=== PATIENT | female | born 1950 | race Caucasian/White ===

== ENCOUNTER 2020-12-10 18:56 | Emergency (ER) | payer MEDICARE, MEDICAID, SELFPAY ==
[2020-12-10 18:57] VITALS: BP 151/60; PULSE 71; RESP 18; TEMP 36.7; O2SAT 92; BMI 47.5
--- NOTE | 2020-12-10 19:08 | HMH.EDGENADL ---
ED Disposition Clinical Impression: Tracheostomy complication Disposition: Xfer SNF Condition on Discharge: Good - Critical Care Critical Care Time: No Attestation: On , the high probability of a clinically significant, sudden or life threatening deterioration of the following system(s) required my full and direct attention, intervention and personal management. The time I documented below is in addition to time spent performing reported procedures but includes the following listed in this critical care notation. Medical Decision Making - Medical Records Medical records reviewed: Yes: I reviewed the patient's medical records. - [place] Inquiry Pt receiving controlled substance: No Vital Signs: 12/10/20 18:57 Temperature 98.1 F Temperature Source Oral Pulse Rate [Left Radial] 71 Respiratory Rate 18 Blood Pressure [Right Arm] 151/60 H Blood Pressure Mean [Right Arm] 90 Blood Pressure Source [Right Arm] Automatic Cuff Blood Pressure Position [Right Arm] Sitting 02 Sat by Pulse Oximetry 92 L Oxygen Delivery Method Room Air Medical Decision Narrative: 70-year-old female presents without any distress. She has normal oxygen saturation on room air and is requesting to keep the tracheostomy out as she is able to talk and not have any distress. Vital signs otherwise unremarkable Patient has been in no acute distress nontoxic-appearing in the emergency department. I discussed the case with ENT on-call Dr. Marc at . As she has no stridor is in no distress, no respiratory symptoms. And oxygen has been in the mid 90s since tracheostomy was pulled out. Recommendation to leave trach out at this point and follow-up with ENT. Plan to place Xeroform gauze and gauze over site to keep it clean. It will need to be cleaned daily and sterile water can be used. It is important to remove any debris from the site daily. These are guidelines for the shelter and then the follow-up appointment with ENT will be made for the next week. General Adult HPI - General Chief complaint: Recheck/Abnormal Lab/Rx Stated complaint: pulled trach out Time Seen by Provider: 12/10/20 19:00 Mode of Arrival: EMS Limitations: Physical Limitations Description of Symptoms (Recalled from ER Triage Doc. by RN): pt trach came out, states she is unsure how this happened. Shiley #6 is what was previously inserted by another hospital. - History of Present Illness HPI narrative: 70-year-old female presents with pulling trach out. Apparently she was admitted at [facility] for angioedema induced by lisinopril. She was supposed to follow-up with ENT after 2 weeks for evaluation however she has had the tracheostomy in place since that time. They did place it at that time because she had difficulty intubation from above. Since the tracheostomy was pulled out tonight she is awake and alert without any complaints talking with normal vital signs and normal saturations. She does deny shortness of air chest pain. [facility] History - Hepatitis A Screen Drug use history?: No High risk sexual behaviors?: No History of sexually transmitted infection?: No Currently employed?: No Childcare worker?: No Do you have indoor plumbing?: Yes Do you have electricity?: Yes Attestation statement:: This patient has been screened for Hepatitis A risk factors. ROS Obtained: Yes All systems reviewed & no additional complaints - Constitutional Constitutional: Denies chills, Denies fever(s) - Eyes Eyes: Denies blurry vision - ENT Ears, Nose, Mouth, and Throat: Denies dizziness - Cardiovascular Cardiovascular: Denies chest pain - Respiratory Respiratory: Denies shortness of breath - Gastrointestinal Gastrointestingal: Denies: abdominal pain - Genitourinary Female Genitourinary: Denies flank pain - Musculoskeletal Musculoskeletal: Denies joint pain, Denies joint stiffness - Integumentary/Breasts Skin/Breast: Denies rash - Neurologic Neuro
--- NOTE | 2020-12-10 19:12 | PC.NURSE ---
placed call to [facility] for ENT consult and to [facility] for Dr Smith
--- NOTE | 2020-12-10 19:54 | PC.NURSE ---
report called to BENJAMIN Henry by Camilla Steel RN
[2020-12-10 20:12] VITALS: BP 149/72; PULSE 70; RESP 20; TEMP 36.7; O2SAT 94
== END 2020-12-10 20:29 ==
PROVIDERS: Emergency Provider Emergency Medicine; PCP Family Medicine
DX: J95.00 Unspecified tracheostomy complication (principal)
CPT/HCPCS: 99282

== ENCOUNTER 2022-03-23 06:03 | Emergency (ER) | payer MEDICARE, MEDICAID, SELFPAY ==
[2022-03-23] VITALS (10 sets, daily range): BP systolic 107–162; BP diastolic 50–79; PULSE 62–73; RESP 18–20; TEMP 36.6; O2SAT 95–100; BMI 45.7
--- NOTE | 2022-03-23 06:11 | CT_ITS ---
FINAL REPORT CLINICAL HISTORY: fall FINDINGS: Axial images of the head were obtained without contrast. Coronal reformatted images were also obtained. This study was performed with techniques to keep radiation doses as low as reasonably achievable (ALARA). Individualized dose reduction techniques using automated exposure control or adjustment of mA and/or kV according to the patient's size were employed. There is generalized age-appropriate atrophy. Periventricular low-attenuation areas are seen consistent with mild chronic ischemic changes. There is no evidence of intracranial hemorrhage or mass. There is no evidence of acute infarct. There is no evidence of shift of the midline structures. No skull abnormality is seen on the bone window images. IMPRESSION: Atrophy and mild periventricular chronic ischemic changes. No acute intracranial abnormality identified. Reviewed, Interpreted and Dictated by Yong Mendoza III, MD Transcribed by Juwan Kay Authenticated and [facility]
--- NOTE | 2022-03-23 06:11 | CT_ITS ---
FINAL REPORT CLINICAL HISTORY: fall FINDINGS: Axial CT images of the cervical spine were obtained without contrast. Sagittal and coronal reformatted images were also obtained. This study was performed with techniques to keep radiation doses as low as reasonably achievable (ALARA). Individualized dose reduction techniques using automated exposure control or adjustment of mA and/or kV according to the patient''s size were employed. There is no evidence of fracture or dislocation. There is mild anterolisthesis of C2 on C3 and C3 on C4. There are moderate and severe degenerative changes. There is multilevel disc space narrowing and osteophyte formation. There is no evidence of canal stenosis. No paraspinous soft tissue abnormality is seen. Limited images of the upper thorax are unremarkable. IMPRESSION: No fracture or acute bony abnormality identified. Reviewed, Interpreted and Dictated by Yong Mendoza III, MD Transcribed by Juwan Kay Authenticated and [facility]
--- NOTE | 2022-03-23 06:11 | XR_ITS ---
FINAL REPORT CLINICAL HISTORY: fall FINDINGS: SINGLE VIEW CHEST The heart size is enlarged. The mediastinum is within normal limits. There is mild pulmonary vascular congestion. There are bibasilar opacities favoring atelectasis. There is no evidence of pneumothorax. The bony thorax is intact. IMPRESSION: Bibasilar opacities favoring atelectasis. Reviewed, Interpreted and Dictated by Yong Mendoza III, MD Transcribed by Juwan Kay Authenticated and [facility]
--- NOTE | 2022-03-23 06:11 | XR_ITS ---
FINAL REPORT CLINICAL HISTORY: . fall FINDINGS: AP PELVIS: A single view of the pelvis was obtained. There is no acute fracture or dislocation. Visualized joint spaces are normally aligned. Degenerative changes are seen in the lumbar spine. Soft tissues are unremarkable. IMPRESSION: No acute process. Reviewed, Interpreted and Dictated by Yong Mendoza III, MD Transcribed by Juwan Kay Authenticated and [facility]
--- NOTE | 2022-03-23 06:11 | HMH.EDFALL ---
Discharge Plan Disposition Chief Complaint: Fall Referrals Follow up/Referrals: Chidi Hobson [Primary Care Provider] - See instructions Chuy Fernandes MD [Physician] - See instructions Clinical Impressions Clinical Impression: Concussion without loss of consciousness, Closed fracture nasal bone, Fall Instructions Patient Instructions: DI for Nose Fracture Discharge ED Provider: Chidi Maier Fall HPI General Chief Complaint: Fall Stated Complaint: fall Time Seen by Provider: 03/23/22 06:11 Mode of Arrival: EMS Source of Information: Patient, EMS and Medical Record Limitations: No Limitations Description of Symptoms (Recalled from ER Triage Doc. by RN): pt states was walking to bathroom and tripped over feet and fell. pt c/o nose and forehead pain History of Present Illness HPI Narrative: fell this am with head and facial injury complaint: fall Onset (ago): hour(s) Fall from: walking Fall witnessed: no Place fall occurred: home Loss of consciousness: none Prolonged down time: no Symptoms prior to fall: none Context: tripped/slipped Location of injury: head, face and neck Associated symptoms (after fall): headache and neck pain Related Data Allergies Allergy/AdvReac Type Severity Reaction Status Date / Time No Known Allergies Allergy Verified 12/10/20 20:11 PFSH PFSH Social History Smoking Status: Never smoker alcohol intake: never current occupational status: retired Travel in the last 8 weeks: None ROS Obtained: Yes All systems reviewed & no additional complaints except as documented Constitutional Constitutional: Denies fever(s) Eyes Eyes: Denies loss of vision Neurologic Neurologic: Denies loss of vision Physical Exam General General appearance: alert and obese Head Head exam: normocephalic Eye Eye exam: Present PERRL and EOMI ENT ENT exam: Present mucous membranes moist Neck Neck exam: Present trachea midline Respiratory Respiratory exam: Present normal lung sounds bilaterally Cardiovascular Cardiovascular exam: Present regular rate Abdominal Exam Abdominal exam: Present soft Extremities Exam Extremities exam: Absent joint swelling Neurological Exam Neurological exam: Present alert, oriented X3, CN II-XII intact and other (gcs=15); Absent motor sensory deficit Skin Skin exam: Absent rash Medical Decision Making Medical Records Medical records reviewed: Yes I reviewed the patient's medical records. [place] Inquiry Pt receiving controlled substance: No Vital Signs: 03/23/22 06:03 03/23/22 07:01 Temperature 97.8 F Temperature Source Oral Pulse Rate 71 Pulse Rate [Right] 69 Respiratory Rate 20 Blood Pressure 107/50 L Blood Pressure [Right Arm] 141/79 H Blood Pressure Mean 73 Blood Pressure Mean [Right Arm] 99 02 Sat by Pulse Oximetry 95 100 Oxygen Delivery Method Nasal Cannula Nasal Cannula Oxygen Flow Rate (LPM) 3 Lab Data Lab results reviewed: Yes I reviewed the patient's lab results. Orders (Tests/Meds): ORDERS Category Date Time Status CT cervical spine wo con Stat Cat Scan 03/23/22 06:[address] facial bones wo con Stat Cat Scan 03/23/22 06:[address] head/brain wo con Stat Cat Scan 03/23/22 06:11 Completed XR chest portable Stat Exams 03/23/22 06:11 Completed XR pelvis 1-2V Stat Exams 03/23/22 06:11 Completed Radiology Data #1: Image(s): Chest and Pelvis Image Reviewed: Yes I have reviewed radiologist's interpretation Preliminary Findings: No Fracture Seen CT Data CT Scan: Head, C-Spine and Other (facial) Time Received: 08:[address] Reviewed: Yes I have viewed the radiologist's interpretation Preliminary Findings: Abnormal Findings Narrative: nasal bone fx US Data ED US Reviewed: Yes I have viewed radiologist's interpretation Medical Decision Narrative: trip injury and has nasal fx but has stable exam Critical Care Time Critical Care Time Critical Care Time: No Attest
--- NOTE | 2022-03-23 06:37 | CT_ITS ---
FINAL REPORT TECHNIQUE: Axial CT images were obtained through the facial bones/sinuses. Coronal reformats were obtained. This study was performed with techniques to keep radiation doses as low as reasonably achievable (ALARA). Individualized dose reduction techniques using automated exposure control or adjustment of mA and/or kV according to the patient's size were employed. CLINICAL HISTORY: fall FINDINGS: There are bilateral nasal bone fractures of uncertain age. The orbits are intact. The globes are unremarkable. The visualized sinuses are clear. There is nasal soft tissue swelling. IMPRESSION: Bilateral nasal bone fractures of uncertain age. Reviewed, Interpreted and Dictated by Yong Mendoza III, MD Transcribed by Juwan Kay Authenticated and [facility]
--- NOTE | 2022-03-23 07:55 | PC.NURSE ---
checked on pt at this time, given warm blanket, states no other needs. Will continue to monitor
--- NOTE | 2022-03-23 08:07 | PC.NURSE ---
contacted rad to check on status of cts/xrays being read, staff states will check on them and call us back.
--- NOTE | 2022-03-23 08:34 | PC.NURSE ---
report called to Marah Wheat at [facility]. Staff at [facility] states pt has been transported previously by [employer]. Contacted care management, spoke with Johnnie Caro. States she will check into it and call us back.
--- NOTE | 2022-03-23 08:47 | PC.NURSE ---
jose from care management called states [facility] states they are going to make phone calls for transport for pt and will call us back.
--- NOTE | 2022-03-23 08:50 | SW/DCPLANNER ---
Addendum entered by Marisol Reed 03/23/22 11:01: Diana has confirmed that [facility] will be here at 12:30 to transport this patient. I have updated Scot in ED. Original Note: I have contacted Diana w/ [facility] regarding transportation for this patient. Diana stated that she will make a few phone calls and contact me back. Patient is medically stable for discharge from ED.
--- NOTE | 2022-03-23 10:36 | PC.NURSE ---
Marisol from care management states no new news on transport for pt. pt sleeping will continue to monitor
--- NOTE | 2022-03-23 10:44 | PC.NURSE ---
pt was sleeping when i entered room. Pt woke up when I came in, offered pt food, ordered pt food tray, updated pt on working on transport back home.
--- NOTE | 2022-03-23 12:01 | PC.NURSE ---
Marisol Reed called down and advised that the patients ride would be here at approximately 1230
--- NOTE | 2022-03-23 12:32 | PC.NURSE ---
notified [facility] staff pt is on the way back to their facility at this time via [employer] cab
== END 2022-03-23 12:40 | disposition home or self-care (01) ==
PROVIDERS: Emergency Provider Emergency Medicine; PCP Family Medicine
DX: S06.0X0A Concussion without loss of consciousness, initial encounter (principal); S02.2XXA Fracture of nasal bones, initial encounter for closed fracture; W19.XXXA Unspecified fall, initial encounter
CPT/HCPCS: 70450; 70486; 71045; 72125; 72170; 99284

== ENCOUNTER → 2022-04-19 09:39 | Outpatient (POV) | payer MEDICARE, MEDICAID, SELFPAY | PROVIDERS: Visit Provider Dermatology | DX: Z00.00 Encounter for general adult medical examination without abnormal findings (principal) ==

== ENCOUNTER 2023-08-08 11:12 | Outpatient (POV) | payer MEDICARE, MEDICAID, SELFPAY | END 2023-08-08 23:59 | disposition home or self-care (01) | LOC: SC 11:12 | PROVIDERS: PCP Family Medicine; Visit Provider Dermatology | DX: Z00.00 Encounter for general adult medical examination without abnormal findings (principal) ==

== ENCOUNTER 2025-02-23 09:12 | Inpatient (IN) | payer MEDICARE, MEDICAID, SELFPAY ==
--- OUTSIDE RECORDS SUMMARY | 2025-02-16 20:00 | XMS_ITS | Continuity of Care Document ---
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 Role Phone Chloe BRADLEY, Tomás Unavailable Unavailable Allergies, Adverse Reactions, Alerts Substance Reaction Status Criticality influenza virus vacc trivalent, split Act jodie No Information CEPHALEXIN MONOHYDRATE Active No In formation lisinopril Active No Information METOCLOPRAMIDE HCL Active No Inform ation Cephalosporins Active No Informatio n Sulfa (Sulfonamide Antibiotics) Active No Information Penicillins Active No Information aspirin Active No Information Medications Medication Instructions Dosage Effective Dates (start - stop) Status Comments Myrbetriq 50 mg tablet,extended release - Active alprazolam 0.5 mg tablet - A ctive gabapentin 100 mg capsule - Active melatonin 3 mg tablet - Acti ve ropinirole 1 mg tablet - Act jodie loratadine 10 mg tablet - Ac tive acetaminophen 500 mg tablet - Active senna 8.6 mg tablet - Active oseltamivir 75 mg capsule - Active Ear Wax Removal Drops 6.5 % - Active clotrimazole-betamethasone 1 %-0.05 % topical cream - Active nystatin 100,000 unit/gram topical ointment - Active Calcium Antacid 200 mg (as calcium carbonate 500 mg) chewable tablet - Active neomycin 3.5 mg-polymyxin 10,000 unit-hydrocort 10 mg/mL eye drop,susp - Active diphenhydramine 25 mg tablet - Active triamcinolone acetonide 0.1 % topical cream - Active triamcinolone acetonide 0.1 % topical ointment - Active ondansetron HCl 4 mg tablet - Active hydroxyzine HCl 10 mg tablet - Active hydroxyzine HCl 25 mg tablet - Active cephalexin 250 mg capsule - Active cephalexin 500 mg capsule - Active potassium chloride ER 10 mEq capsule,extended release - Active ropinirole 0.5 mg tablet - A ctive tamsulosin 0.4 mg capsule - Active amlodipine 5 mg tablet - Act jodie hydralazine 50 mg tablet - A ctive levothyroxine 125 mcg tablet - Active sertraline 50 mg tablet - Ac tive tramadol 50 mg tablet - Acti ve buspirone 10 mg tablet - Act jodie Eliquis 5 mg tablet - Active omeprazole 20 mg capsule,delayed release - Active lorazepam 0.5 mg tablet - Ac tive furosemide 40 mg tablet - Ac tive doxycycline hyclate 100 mg capsule - Active doxycycline hyclate 100 mg tablet - Active lorazepam 1 mg tablet - Acti ve metoprolol tartrate 75 mg tablet - Active ammonium lactate 12 % lotion - Active ketoconazole 2 % topical cream - Active mupirocin 2 % topical ointment - Active potassium chloride ER 20 mEq tablet,extended release(part/cryst) - Active prednisone 20 mg tablet - Ac tive omeprazole 40 mg capsule,delayed release - Active spironolactone 25 mg tablet - Active levofloxacin 500 mg tablet - Active furosemide 20 mg tablet - Ac tive ipratropium 0.5 mg-albuterol 3 mg (2.5 mg base)/3 mL nebulization soln - Active levothyroxine 100 mcg tablet - Active nystatin 100,000 unit/gram topical powder - Active acetylcysteine 200 mg/mL (20 %) solution - Active cetirizine 10 mg tablet TAKE 1 TABLET BY MOUTH ONCE A DAY. - Active DOK 100 mg capsule TAKE (1) CAPSULE BY MOUTH TWICE DAILY. - Active folic acid 1 mg tablet TAKE 1 TABLET BY MOUTH ONCE A DAY. - Active Jardiance 10 mg tablet TAKE 1 TABLET BY MOUTH EACH MORNING - Active metformin 500 mg tablet TAKE (1) TABLET BY MOUTH TWICE A DAY WITH MORNING AND EVENING MEALS - Active oxybutynin chloride ER 15 mg tablet,extended release 24 hr - Active simvastatin 20 mg tablet - A ctive trazodone 100 mg tablet - Ac tive Vascepa 1 gram capsule TAKE (2) CAPSULES BY MOUTH TWICE DAILY WITH FOOD SWALLOWING WHOLE. DO NOT CHEW, OPEN, DISSOLVE AND/OR CRUSH. - Active fluconazole 150 mg tablet TAKE 1 TABLET BY MOUTH ONCE A DAY. - Active nystatin 100,000 unit/gram topical cream - Active meclizine 25 mg tablet - Act jodie carvedilol 3.125 mg tablet TAKE 1 TABLET TWICE DAILY TAKE WITH FOOD - Active gabapentin 300 mg capsule TAKE (1) CAPSU LE BY MOUTH THREE TIMES DAILY. - Active hydrochlorothiazide 12.5 mg tablet TAKE (1) TABLET BY MOUTH TWICE A DAY. - Active lisinopril 10 mg tablet - Ac tive Nystop 100,000 unit/gram topical powder - Active Procedures Procedure Date Dystrophic nail(s), trim any number Debride mycotic nails 5 or less 025 Low extemity neur exam docum REMOVE IMPACTED EAR WAX Debride mycotic nails 6 or more 025 DEBRIDE NAIL 6 OR MORE Periodic Oral Evaluation UNLISTED ORL SERVICE/PX Vision svcs frames purchases FITTING OF SPECTACLES DETERMINE REFRACTIVE STATE Lens spher bifoc plano 4.00d FUNDUS PHOTOGRAPHY COMPRE OPH EXAM EST PT 1/> DEBRIDE NAIL 6 OR MORE SBSQ NF CARE LOW MDM 20 PARING/CUTG B9 HYPRKER LES 1 DEBRIDE NAIL 6 OR MORE Periodic Oral Evaluation PARING/CUTG B9 HYPRKER LES 1 DEBRIDE NAIL 6 OR MORE ECHO EXAM OF EYE THICKNESS SBSQ NF CARE MODERATE MDM 30 PARNG/CUTG B9 HYPRKR LES 2-4 DEBRIDE NAIL 6 OR MORE Periodic Oral Evaluation Vision svcs frames purchases FITTING OF SPECTACLES DETERMINATION OF REFRACTIVE STATE Lens spher bifoc plano 4.00d FUNDUS PHOTOGRAPHY SBSQ NF CARE MODERATE MDM 30 DEBRIDE NAIL 6 OR MORE DEBRIDE NAIL 6 OR MORE FUNDUS PHOTOGRAPHY EYE EXAM & TREATMENT TRIM SKIN LESION DEBRIDE NAIL 6 OR MORE Compsve Oral Eval- New/Est Pat Complete Series Of Radiographic Images M TRIM SKIN LESION DEBRIDE NAIL 6 OR MORE TRIM SKIN LESION DEBRIDE NAIL 6 OR MORE DEBRIDE NAIL 6 OR MORE TRIM SKIN LESION FUNDUS PHOTOGRAPHY EYE EXAM NEW PATIENT DEBRIDE NAIL 6 OR MORE NURSING FAC CARE SUBSEQ Compsve Oral Eval- New/Est Pat Advance Directives Directive Yes / No Effective Date File Name No Information Encounters Encounter Description Practice Location Reason(s) For Visit Diagnoses Date Provider Providers Copied on Encounter [address] [place] [address], [address] [place] [address], [place], [place], [id number], tel:[phone] [facility] 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 [address] [place] [address], [address] [place] [address], [place], [place], [id number], tel:[phone] [facility] ear care exam (chief complaint) Impacted cerumen, left ear 5 Alison-Hard mc Edita. [address] [facility], [address], [place], [address], . Referring Provider: Chidi Hobson. [address] [place] [address], [address] [place] [address], [place], [place], [id number], tel:[phone] [facility] Nail dystrophyOnych ogryphosisType 2 diabetes mellitus with diabetic peripheral angiopathy without gangreneLong term (current) use of oral hypoglycemic drugs 5 [place], [place]. [address] [place] [address], [place], [place], [id number], tel:[phone] [place] [address] No Information 5 [place], [place]. [address] [place] [address], [address] [place] [address], [place], [place], [id number], tel:[phone] [facility] Type 2 diabetes mellitus with diabetic peripheral angiopathy without gangreneOther specified peripheral vascular diseasesOnycho gryphosisNail dystrophy 5 [place]. [address] [place] [address], [address] [place] [address], [place], [place], [id number], [place] tel:[phone] [facility] Encounter for dental examination and cleaning without abnormal findings 5 Collin [place]. . Referring Provider: Chidi Hobson. [address] [place] [address], [address] [place] [address], [place], [place], [id number], [place] tel:[phone] [facility] Impacted cerumen, bilateral 5 Lili [place], [place]. Referring Provider: Chidi Hobson. [address] [place] [address], [address] [place] [address], [place], [place], [id number], [place] tel:[phone] [facility] Presbyopia 4 [place], [place]. [address] [place] [address], [address] [place] [address], [place], [place], [id number], [place] tel:[phone] [facility] Diabetic eye exam (chief complaint) Cataract (chief complaint) Glaucoma, suspect (chief complaint) Open angle with borderline findings, low risk, bilateralAge-r elated nuclear cataract, bilateralBand keratopathy, left eyePresbyopiaT ype 2 diabetes mellitus without complications 4 [place]. Referring Provider: Chidi Hobson. [address] [place] [address], [address] [place] [address], [place], [place], [id number], tel:[phone] [facility] No Information 4 Michael Houistina. , [place]. SBSQ NF CARE LOW MDM 20 [facility], [address] [place] [address], [place], [place], [id number], [place] tel:[phone] [facility] Nail dystrophyOnych ogryphosisType 2 diabetes mellitus with diabetic neuropathy, unspecifiedCon tusion of right foot, initial encounter 4 Chloe Beeemiah. , [place]. [facility], [address] [place], [place] [address], [place], [place], [id number], [place] tel:[phone] [facility] Corns and callositiesTin ea unguiumOther specified peripheral vascular diseases 4 Trey Mckenna. [address] [facility], [address], [place], [address], [place]. [facility], [address] [place] [address], [place], [place], [id number], [place] tel:[phone] [facility] Encounter for dental examination and cleaning without abnormal findings 4 Rupert Recinos. [address], [address], [place], [place], [id number], [place]. tel:[phone] Referring Provider: Chidi Hobson. [address] [place] [address], [address] [place], [place] [address], [place], [place], [id number], tel:[phone] [facility] Other specified peripheral vascular diseasesTinea unguiumCorns and callosities 4 Trey Stuart [address], [address], [place], [address], [place]. Referring Provider: Chidi Hobson. SBSQ NF CARE MODERATE MDM 30 [facility], [address] [place], [place] [address], [place], [place], [id number], [place] tel:[phone] [facility] Glaucoma, suspect (chief complaint) Cataract (chief complaint) Eyeglasses , problem (chief complaint) Band keratopathy, left eyeAge-related nuclear cataract, bilateralOpen angle with borderline findings, low risk, bilateral May- 4 Michael Hendrickson. , [place]. Referring Provider: Chidi Hobson. [address] [place] [address], [address] [place] [address], [place], [place], [id number], [place] tel:[phone] [facility] Corns and callositiesOth er specified peripheral vascular diseasesTinea unguium 4 Trey Mckenna. [address] [facility], [address], [place], [address], [place]. Referring Provider: Chidi Hobson. [address] [place] [address], [address] [place] [address], [place], [place], [id number], [place] tel:[phone] [facility] Encounter for dental examination and cleaning without abnormal findings 4 Rupert Recinos. [address] [facility], [address], [place], [place], [id number], [place]. tel:[phone] Referring Provider: Chidi Hobson. [address] [place] [address], [address] [place] [address], [place], [place], [id number], [place] tel:[phone] [place] [address] Presbyopia Mar- 3 Kym Johnson. [address] [facility], [address], [place], [address], [place]. SBSQ NF CARE MODERATE MDM [address] [place] [address], [address] [place] [address], [place], [place], [id number], [place] tel:[phone] [facility] Glaucoma, suspect (chief complaint) Open angle with borderline findings, low risk, bilateralAge-r elated nuclear cataract, bilateralBand keratopathy, left eye Oct-2 3 Kym Johnson. [address] [facility], [address], [place], [address], [place]. Referring Provider: Chidi Hobson. [address] [place] [address], [address] [place] [address], [place], [place], [id number], [place] tel:[phone] [facility] Tinea unguiumOther specified peripheral vascular diseases Oct-0 3 Trey Stuart [address] [facility], [address], [place], [address], [place]. [facility], [address] [facility], [place], [place], [id number], [place] tel:[phone] [facility] Tinea unguiumOther specified peripheral vascular diseases 3 Trey Mckenna. [address] [facility], [address], [place], [address], [place]. Referring Provider: Chidi Hobson. [facility], [address] [place], [place] [address], [place], [place], [id number], [place] tel:[phone] [facility] Diabetic eye exam (chief complaint) Open angle with borderline findings, low risk, bilateralAge-r elated nuclear cataract, bilateral 3 Kym Johnson. [address] [facility], [address], [place], [address], [place]. Referring Provider: Chidi Hobson. [address] [place] [address], [address] [place], [place] [address], [place], [id number], [place] tel:[phone] [facility] Tinea unguiumCorns and callositiesOth er specified peripheral vascular diseases 3 Trey Mckenna. [address] [facility], [address], [place], [address], [place]. Referring Provider: Chidi Hobson. [address] [place] [address], [address] [place], [place] [address], [place], [id number], [place] tel:[phone] [facility] No Information 3 Trey Mckenna. [address] [facility], [address], [place], [address], [place]. [facility], [address] [place], [place] [address], [place], [place], [id number], [place] tel:[phone] [facility] Encounter for dental examination and cleaning without abnormal findings 3 Obi Yap [place]. tel:[phone] Referring Provider: Chidi Hobson. [facility], [address] [place], [place] [address], [place], [place], [id number], [place] tel:[phone] [facility] Tinea unguiumCorns and callositiesOth er specified peripheral vascular diseases 2 Trey Stuart [address] [facility], [address], [place], [address], [place]. Referring Provider: Chidi Hobson. [address] [place] [address], [address] [place], [place] [address], [place], [id number], [place] tel:[phone] [facility] Tinea unguiumCorns and callositiesOth er specified peripheral vascular diseases 2 Trey Stuart [address], [address], [place], [address], [place]. Referring Provider: Chidi Hobson. [address] [place] [address], [address] [place] [address], [place], [place], [id number], tel:[phone] [facility] Tinea unguiumOther specified peripheral vascular diseasesCorns and callosities 2 [place]. Referring Provider: Chidi Hobson. [address] [place] [address], [address] [place], [place] [address], [place], [id number], [place] tel:[phone] [facility] Diabetic eye exam (chief complaint) Open angle with borderline findings, low risk, bilateralAge-r elated nuclear cataract, bilateral 2 Kym [place]. [address] [facility], [address], [place], [address], [place]. Referring Provider: Chidi Hobson. NURSING FAC CARE SUBSEQ [address] [place] [address], [address] [place], [place] [address], [place], [place], [id number], [place] tel:[phone] [facility] Tinea unguiumOther specified peripheral vascular diseasesContus ion of right great toe w/o damage to nail, init encntr 2 Trey Stuart [address] [facility], [address], [place], [address], [place]. Referring Provider: Chidi Roblero [address] [place] [address], [address] [place] [address], [place], [place], [id number], [place] tel:[phone] [facility] Encounter for dental exam and cleaning w/o abnormal findings 2 Melvin Bucio. [address] [facility], [address], [place], [place], [address], [place]. tel:[phone] Referring Provider: Chidi Hobson. [address] [place] [address], [address], [place], [place], [id number], [place] tel:[phone] [facility] No Information [address] [place]. [address], [address], [place], [address], [place]. Family History Family Member Type Diagnosis Age At Onset No Information Payers Payer name Insurance type Covered green party ID Authorabdifataha tisaqib(s) Medicare [facility] [id number] Medicaid [facility] [id number] Social History Type Description Quantity Date Captured Comments Alcohol Use Details Unknown Caffeine Use Details Unknown Tobacco Use Status No Information Smoking Status No Information Sex Female Chief Complaint And Reason For Visit No Information Reason For Referral Reason For Referral No Information Plan Of Treatment Date Type Action Status Appointment Angela Basilio BOOKED Patient Education Earwax Blockage: Care I nstructions completed Patient Education Learning About Dental Care and Your Health Problem completed Patient Education Dental X-Ray: About Thi s Test completed Patient Education Learning About Dental Care and Your Health Problem completed Patient Education Learning About Dental Care and Your Health Problem completed History Of Present Illness Encounter Date Complaint History Of Prese nt Illness Cataract Glaucoma, suspect Diabetic eye exam The 73 year ol d patient presents for evaluation of Diabetic eye exam in the right eye and left eye. It occurs always. The onset was gradual. The symptom is constant. Cataract Glaucoma, suspect The 73 year ol d patient presents for evaluation of Glaucoma, suspect in the right eye and left eye. It occurs always. The onset was gradual. The symptom is constant. Eyeglasses, problem Patient repo rts that eyeglasses are loose. Adjusted nosepads and temples and patient was pleased with the results. Glaucoma, suspect The 72 year ol d patient presents for evaluation of Glaucoma, suspect in the right eye and left eye. It occurs all the time. The onset was gradual. It affects OS > OD. The symptom is constant. Diabetic eye exam The 72 year ol d female presents for evaluation of Diabetic eye exam in the right eye and left eye. It occurs all the time. The onset was gradual. It affects VA not affected. Diabetic eye exam The 71 year ol d female presents for evaluation of Diabetic eye exam in the right eye and left eye. It occurs all the time. The onset was progressive. It affects both near and far vision. The symptom is constant. The condition is moderate. Functional Status Date Functional Assessmen t No Information Instructions Date Instruction Additional Infor mation A diabetic exam perf ormed. discussed importance of good foot care and shoes. Educational material was left with the facility. Related to Type 2 diabetes mellitus with diabetic peripheral angiopathy without gangrene All documented dystr ophic nails were trimmed in length as needed to prevent pain and other symptoms. Patient tolerated procedure well. Related to Nail dystrophy All of the documente d thickened nails (which includes those nails 2 mm or more in thickness, and possible mycotic component to the nails) were reduced in both length and thickness using both a nail nipper and an electric rotary hand grinder in an atraumatic fashion as needed ; this was performed in an attempt to prevent pain and reduce risk of infection. Patient tolerated procedure well. Alcohol applied to the digits afterwards. PT tolerated procedure well. Related to Onychogryphosis Follow up in 6-9 mon ths or sooner if needed. Related to Impacted cerumen, left ear This is a chronic st able problem, Will reassess and follow up in 2-3 months Related to FPC (current) use of oral hypoglycemic drugs All documented dystr ophic nails were reduced in length as needed to prevent pain and other symptoms. Patient tolerated procedure well. Related to Nail dystrophy All of the documente d thickened nails (which includes those nails 2 mm or more in thickness, and possible mycotic component to the nails) were debrided in both length and thickness using both a nail nipper and an electric rotary hand grinder in an atraumatic fashion as needed ; this was performed in an attempt to prevent pain and reduce risk of infection. Alcohol applied to the digits afterwards. PT tolerated procedure well. 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 Reinforced the importance of proper adherence to using the lizandro hose, and compression stockings. Will continue to monitor. Related to Other specified peripheral vascular diseases All of the documente d thickened nails (which includes those nails 2 mm or more in thickness, and possible mycotic component to the nails) were debrided in both length and thickness using both a nail nipper and an electric rotary hand grinder in an atraumatic fashion; this was performed in an attempt to prevent pain and reduce risk of infection. Alcohol applied to the digits afterwards. Related to Onychogryphosis All documented dystr ophic nails were reduced in length as needed to prevent pain and other symptoms. Related to Nail dystrophy Otoscopy and impedan ce testing indicated the ear canals are impacted with cerumen Related to Impacted cerumen, bilateral Return in 6-9 months for IOP brigida ck. Related to Type 2 diabetes mellitus without complications Impression/Plan - No active diabetic retinopathy present in right eye. We will monitor at regular intervals. Photodocument. No view OS due to anterior pathology. Related to Type 2 diabetes mellitus without complications Follow up - Return i n 6-9 months for IOP check. Related to Type 2 diabetes mellitus without complications Impression/Plan - Gl asses order will be processed at request of resident. Related to Presbyopia Impression/Plan - Lo ng-standing and stable. Monitor. Related to Band keratopathy, left eye Impression/Plan - Ca taracts are moderate and are affecting visual acuity; however, no treatment recommended at this time. We will monitor for progression. Related to Age-related nuclear cataract, bilateral Impression/Plan - Alphonso rderline Glaucoma findings; No treatment indicated at this time; Further testing needed to assess risk of developing glaucoma. Related to Open angle with borderline findings, low risk, bilateral This is a chronic st able problem, Will reassess and follow up in 2-3 months Related to Type 2 diabetes mellitus with diabetic neuropathy, unspecified Scabbed healing well no change to current treatment plan, discussed with nursing. Related to Contusion of right foot, initial encounter All documented dystr ophic nails were reduced in length as needed to prevent pain and other symptoms. Related to Nail dystrophy All documented thick ened nails were debrided using a rotary tool and nail nipper. Related to Onychogryphosis All of the calluses were debrided/pared to prevent further tissue breakdown and pain. Related to Corns and callosities Toenails 1-5 b/l wer e debrided in length and thickness without incident. Follow up in 2-3 months. Related to Tinea unguium All of the calluses were debrided/pared to prevent further tissue breakdown and pain. Related to Corns and callosities Toenails 1-5 b/l wer e debrided in length and thickness without incident. Follow up in 2-3 months. Related to Tinea unguium Return in 6-9 months for dilated fundus exam. Related to Open angle with borderline findings, low risk, bilateral Impression/Plan - Un able to get IOP today; order pachymetry. Check IOP at next visit. Related to Open angle with borderline findings, low risk, bilateral Follow up - Return i n 6-9 months for dilated fundus exam. Related to Open angle with borderline findings, low risk, bilateral Impression/Plan - Ca taracts are moderate and are affecting visual acuity; however, no treatment recommended at this time. We will monitor for progression. Related to Age-related nuclear cataract, bilateral Impression/Plan - Lo ng-standing and stable. Monitor. Related to Band keratopathy, left eye All of the calluses were debrided/pared to prevent further tissue breakdown and pain. Related to Corns and callosities Toenails 1-5 b/l wer e debrided in length and thickness without incident. Follow up in 2-3 months. Related to Tinea unguium Impression/Plan - Alphonso rderline Glaucoma findings; No treatment indicated at this time; Further testing needed to assess risk of developing glaucoma. Related to Open angle with borderline findings, low risk, bilateral Impression/Plan - Ca taracts are moderate and are affecting visual acuity; however, no treatment recommended at this time. We will monitor for progression. Related to Age-related nuclear cataract, bilateral Impression/Plan - Lo ngstanding, loss of vision. Told her specs won't help OS but may help OD some. Related to Band keratopathy, left eye Toenails 1-5 b/l wer e debrided in length and thickness without incident. Follow up in 2-3 months. Related to Tinea unguium Toenails 1-5 b/l wer e debrided in length and thickness without incident. Follow up in 2-3 months. Related to Tinea unguium We will schedule a f ollow up appointment in 6-9 months for a dilated fundus exam. Related to Open angle with borderline findings, low risk, bilateral Impression/Plan - Ca taracts are visually significant; Please schedule for cataract evaluation with [facility] [phone]. Related to Age-related nuclear cataract, bilateral Impression/Plan - Alphonso rderline Glaucoma findings; No treatment indicated at this time; Further testing needed to assess risk of developing glaucoma. Related to Open angle with borderline findings, low risk, bilateral Follow up - We will schedule a follow up appointment in 6-9 months for a dilated fundus exam. Related to Open angle with borderline findings, low risk, bilateral All of the calluses were debrided/pared to prevent further tissue breakdown and pain. Related to Corns and callosities Toenails 1-5 b/l wer e debrided in length and thickness without incident. Follow up in 2-3 months. Related to Tinea unguium Toenails 1-5 b/l wer e debrided in length and thickness without incident. Follow up in 2-3 months. Related to Tinea unguium All of the calluses were debrided/pared to prevent further tissue breakdown and pain. Related to Corns and callosities Toenails 1-5 b/l wer e debrided in length and thickness without incident. Follow up in 2-3 months. Related to Tinea unguium All of the calluses were debrided/pared to prevent further tissue breakdown and pain. Related to Other specified peripheral vascular diseases Toenails 1-5 b/l wer e debrided in length and thickness without incident. Follow up in 2-3 months. Related to Tinea unguium All of the calluses were debrided/pared to prevent further tissue breakdown and pain. Related to Corns and callosities We will schedule a f ollow up appointment in 6-9 months for a dilated fundus exam. Related to Age-related nuclear cataract, bilateral Impression/Plan - Ca taracts are moderate and are affecting visual acuity; however, no treatment recommended at this time. We will monitor for progression. Related to Age-related nuclear cataract, bilateral Follow up - We will schedule a follow up appointment in 6-9 months for a dilated fundus exam. Related to Age-related nuclear cataract, bilateral Impression/Plan - Alphonso rderline Glaucoma findings; No treatment indicated at this time; Further testing needed to assess risk of developing glaucoma. Related to Open angle with borderline findings, low risk, bilateral Toenails 1-5 b/l wer e debrided in length and thickness without incident. Follow up in 2-3 months. Related to Tinea unguium Discussed with the jovani lopez. No dressing needed at this time. Monitor for infection. 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
--- OUTSIDE RECORDS SUMMARY | 2025-02-16 20:00 | XMS_ITS | Continuity of Care Document ---
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 [address] [place] [address], [address] [place] [address], [place], [place], [id number], tel:[phone] [facility] ear care exam (chief complaint) Impacted cerumen, left ear 5 Alison-Hard mc Edita. [address] [facility], [address], [place], [address], . Referring Provider: Chidi Hobson. [address] [place] [address], [address] [place] [address], [place], [place], [id number], tel:[phone] [facility] Nail dystrophyOnych ogryphosisType 2 diabetes mellitus with diabetic peripheral angiopathy without gangreneLong term (current) use of oral hypoglycemic drugs 5 [place], [place]. [address] [place] [address], [place], [place], [id number], tel:[phone] [place] [address] No Information 5 [place], [place]. [address] [place] [address], [address] [place] [address], [place], [place], [id number], tel:[phone] [facility] Type 2 diabetes mellitus with diabetic peripheral angiopathy without gangreneOther specified peripheral vascular diseasesOnycho gryphosisNail dystrophy 5 [place], [place]. [address] [place] [address], [address] [place] [address], [place], [place], [address], [place] tel:[phone] [facility] Encounter for dental examination and cleaning without abnormal findings 5 Collin Jackson. . Referring Provider: Chidi Hobson. [address] [place] [address], [address] [place] [address], [place], [place], [id number], [place] tel:[phone] [facility] Impacted cerumen, bilateral 5 [place]. Referring Provider: Chidi Hobson. [address] [place] [address], [address] [place] [address], [place], [place], [id number], [place] tel:[phone] [facility] Presbyopia 4 [place], [place]. [address] [place] [address], [address] [place] [address], [place], [place], [id number], [place] tel:[phone] [facility] Diabetic eye exam (chief complaint) Cataract (chief complaint) Glaucoma, suspect (chief complaint) Open angle with borderline findings, low risk, bilateralAge-r elated nuclear cataract, bilateralBand keratopathy, left eyePresbyopiaT ype 2 diabetes mellitus without complications 4 [place], [place]. Referring Provider: Chidi Hobson. [address] [place] [address], [address] [place] [address], [place], [place], [id number], tel:[phone] [facility] No Information 4 Michael Houistina. , [place]. SBSQ NF CARE LOW MDM 20 [facility], [address] [place] [address], [place], [place], [id number], [place] tel:[phone] [facility] Nail dystrophyOnych ogryphosisType 2 diabetes mellitus with diabetic neuropathy, unspecifiedCon tusion of right foot, initial encounter 4 Chloe Beeemiah. , [place]. [facility], [address] [place], [place] [address], [place], [place], [id number], [place] tel:[phone] [facility] Corns and callositiesTin ea unguiumOther specified peripheral vascular diseases 4 Trey Mckenna. [address] [facility], [address], [place], [address], [place]. [facility], [address] [place] [address], [place], [place], [id number], [place] tel:[phone] [facility] Encounter for dental examination and cleaning without abnormal findings 4 Rupert Recinos. [address], [address], [place], [place], [id number], [place]. tel:[phone] Referring Provider: Chidi Hobson. [address] [place] [address], [address] [place], [place] [address], [place], [place], [id number], tel:[phone] [facility] Other specified peripheral vascular diseasesTinea unguiumCorns and callosities 4 Trey Stuart [address], [address], [place], [address], [place]. Referring Provider: Chidi Hobson. SBSQ NF CARE MODERATE MDM 30 [facility], [address] [place], [place] [address], [place], [place], [id number], [place] tel:[phone] [facility] Glaucoma, suspect (chief complaint) Cataract (chief complaint) Eyeglasses , problem (chief complaint) Band keratopathy, left eyeAge-related nuclear cataract, bilateralOpen angle with borderline findings, low risk, bilateral May- 4 Michael Hendrickson. , [place]. Referring Provider: Chidi Hobson. [address] [place] [address], [address] [place] [address], [place], [place], [id number], [place] tel:[phone] [facility] Corns and callositiesOth er specified peripheral vascular diseasesTinea unguium 4 Trey Mckenna. [address] [facility], [address], [place], [address], [place]. Referring Provider: Chidi Hobson. [address] [place] [address], [address] [place] [address], [place], [place], [id number], [place] tel:[phone] [facility] Encounter for dental examination and cleaning without abnormal findings 4 Rupert Rceinos. [address] [facility], [address], [place], [place], [id number], [place]. tel:[phone] Referring Provider: Chidi Hobson. [address] [place] [address], [address] [place] [address], [place], [place], [id number], [place] tel:[phone] [place] [address] Presbyopia Mar- 3 Kym Johnson. [address] [facility], [address], [place], [address], [place]. SBSQ NF CARE MODERATE MDM [address] [place] [address], [address] [place] [address], [place], [id number], [place] tel:[phone] [facility] Glaucoma, suspect (chief complaint) Open angle with borderline findings, low risk, bilateralAge-r elated nuclear cataract, bilateralBand keratopathy, left eye Oct-2 3 Kym Johnson. [address] [facility], [address], [place], [address], [place]. Referring Provider: Chidi Hobson. [address] [place] [address], [address] [place] [address], [place], [address], [place] tel:[phone] [facility] Tinea unguiumOther specified peripheral vascular diseases Oct-0 3 Trey Stuart [address] [facility], [address], [place], [address], [place]. [facility], [address] [facility] [address], [place], [place], [id number], [place] tel:[phone] [facility] Tinea unguiumOther specified peripheral vascular diseases 3 Trey Mckenna. [address] [facility], [address], [place], [address], [place]. Referring Provider: Chidi Hobson. [facility], [address] [place], [place] [address], [place], [id number], [place] tel:[phone] [facility] Diabetic eye exam (chief complaint) Open angle with borderline findings, low risk, bilateralAge-r elated nuclear cataract, bilateral 3 Kym Johnson. [address] [facility], [place], [address], [place]. Referring Provider: Chidi Hobson. [address] [place] [address], [address] [place], [place] [address], [place], [id number], [place] tel:[phone] [facility] Tinea unguiumCorns and callositiesOth er specified peripheral vascular diseases 3 Trey Mckenna. [address] [facility], [address], [place], [address], [place]. Referring Provider: Chidi Hobson. [address] [place] [address], [address] [place], [place] [address], [place], [id number], [place] tel:[phone] [facility] No Information 3 Trey Mcknena. [address] [facility], [address], [place], [address], [place]. [facility], [address] [place], [place] [address], [place], [place], [id number], [place] tel:[phone] [facility] Encounter for dental examination and cleaning without abnormal findings 3 Obi Yap [place]. tel:[phone] Referring Provider: Chidi Hobson. [facility], [address] [place], [place] [address], [place], [id number], [place] tel:[phone] [facility] Tinea unguiumCorns and callositiesOth er specified peripheral vascular diseases 2 Trey Stuart [address] [facility], [address], [place], [address], [place]. Referring Provider: Chidi Hobson. [address] [place] [address], [address] [place], [place] [address], [place], [place], [address], [place] tel:[phone] [facility] Tinea unguiumCorns and callositiesOth er specified peripheral vascular diseases 2 Trey Stuart [address], [address], [place], [address], [place]. Referring Provider: Chidi Hobson. [address] [place] [address], [address] [place] [address], [place], [place], [id number], tel:[phone] [facility] Tinea unguiumOther specified peripheral vascular diseasesCorns and callosities 2 [place]. Referring Provider: Chidi Hobson. [address] [place] [address], [address] [place], [place] [address], [place], [place], [id number], [place] tel:[phone] [facility] Diabetic eye exam (chief complaint) Open angle with borderline findings, low risk, bilateralAge-r elated nuclear cataract, bilateral 2 Kym Johnson. [address] [facility], [place], [address], [place]. Referring Provider: Chidi Hobson. NURSING FAC CARE SUBSEQ [address] [place] [address], [address] [place], [place] [address], [place], [place], [id number], [place] tel:[phone] [facility] Tinea unguiumOther specified peripheral vascular diseasesContus ion of right great toe w/o damage to nail, init encntr 2 Trey Stuart [address] [facility], [address], [place], [address], [place]. Referring Provider: Chidi Roblero [address] [place] [address], [address] [place] [address], [place], [place], [id number], [place] tel:[phone] [facility] Encounter for dental exam and cleaning w/o abnormal findings 2 Melvin Bucio. [address] [facility], [address], [place], [place], [id number], [place]. tel:[phone] Referring Provider: Chidi Hobson. [address] [place] [address], [address], [place], [place], [id number], [place] tel:[phone] [facility] No Information [address] Kym Johnson. [address], [address], [place], [address], [place]. 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 Reinforced the [...] a nail nipper and an electric rotary chili pepper grinder in an atraumatic fashion; this was [...] 2 diabetes mellitus without complications Impression/Plan - Alphonso rderline Glaucoma findings; No [...] to Band keratopathy, left eye Impression/Plan - Gl asses order will be processed at request of resident. Related to Presbyopia Follow up - Return i n 6-9 months for IOP check. Related to Type 2 diabetes mellitus without complications Impression/Plan - No active diabetic retinopathy present in right eye. We will monitor at regular intervals. Photodocument. No view OS due to anterior pathology. Related to Type 2 diabetes mellitus without complications This is a chronic st able problem, [...] borderline findings, low risk, bilateral Impression/Plan - Lo ng-standing and stable. Monitor. Related to Band keratopathy, left eye Impression/Plan - Ca taracts are moderate and are affecting visual acuity; however, no treatment recommended at this time. We will monitor for progression. Related to Age-related nuclear cataract, bilateral Follow up - Return i n [...] borderline findings, low risk, bilateral Impression/Plan - Alphonso rderline Glaucoma findings; No treatment indicated at this time; Further testing needed to assess risk of developing glaucoma. Related to Open angle with borderline findings, low risk, bilateral Impression/Plan - Ca taracts are visually significant; Please schedule for cataract evaluation with [facility] [phone]. Related to Age-related nuclear cataract, bilateral All of the calluses were debrided/pared [...] progression. Related to Age-related nuclear cataract, bilateral Toenails 1-5 b/l wer e debrided in length and thickness without incident. Follow up in 2-3 months. Related to Tinea unguium Discussed with the jovani lopez. No dressing needed at this time. Monitor for infection. 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
[2025-02-23] VITALS (13 sets, daily range): BP systolic 126–152; BP diastolic 50–77; PULSE 65–88; RESP 16–20; TEMP 36.8–38.4; O2SAT 92–97; BMI 58.6; BMI 43.9
--- OUTSIDE RECORDS SUMMARY | 2025-02-23 09:20 | XMS_ITS | Clinical Summary ---
Author Organization [facility] Address [address], [address] [place] [address] Care Team Providers Care Program Management Intern Name Role Phone Unavailable Primary Care Provider Unavailabl e Allergies Active Allergy Reactions Criticality Noted Date Comments Aspirin 02/14/2021 Bupropion 02/14/2021 Cephalosporins 02/14/2021 Diclofenac 02/14/2021 Cephalexin 02/14/2021 Lisinopril 02/14/2021 Influenza Vac Split Quad 02/14/2021 Penicillins 02/14/2021 Metoclopramide 02/14/2021 Sulfamethoxazole 02/14/2021 Medications amLODIPine (NORVASC) 5 MG tablet Take 5 mg by mouth daily Active furosemide (LASIX) 40 MG tablet Take 40 mg by mouth daily Active melatonin 3 MG TABS tablet Take 3 mg by mouth nightly Active Multiple Vitamins-Minera ls (THERAPEUTIC MULTIVITAMIN-VT NERALS) tablet Take 1 tablet by mouth daily Active omeprazole (PRILOSEC) 20 MG delayed release capsule Take by mouth daily Active potassium chloride (KLOR-CON) 20 MEQ packet Take 20 mEq by mouth 2 times daily Active sertraline (ZOLOFT) 50 MG tablet Take 50 mg by mouth daily Active levothyroxine (SYNTHROID) 125 MCG tablet Take 125 mcg by mouth Daily Active tamsulosin (FLOMAX) 0.4 MG capsule Take 0.4 mg by mouth daily Active apixaban (ELIQUIS) 5 MG TABS tablet Take by mouth 2 times daily Active Metoprolol Tartrate 75 MG TABS Take 37.5 mg by mouth 2 times daily Active dextromethorpha n-guaiFENesin (MUCINEX DM) 30-600 MG per extended release tablet Take 1 tablet by mouth every 12 hours as needed Active coenzyme Q10 100 MG CAPS capsule Take 100 mg by mouth daily Active busPIRone (BUSPAR) 10 MG tablet Take 10 mg by mouth 3 times daily Active hydrALAZINE (APRESOLINE) 50 MG tablet Take 50 mg by mouth 3 times daily Active loperamide (IMODIUM) 2 MG capsule Take 2 mg by mouth 4 times daily as needed for Diarrhea Active polyethylene glycol (GLYCOLAX) 17 g packet Take 17 g by mouth daily as needed for Constipation Active senna (SENOKOT) 8.8 MG/5ML SYRP syrup Take 5 mLs by mouth nightly Active traMADol (ULTRAM) 50 MG tablet Take 50 mg by mouth every 6 hours as needed for Pain. Active acetaminophen (TYLENOL) 325 MG tablet Take 650 mg by mouth every 6 hours as needed for Pain Active cetirizine (ZYRTEC) 10 MG tablet Take 1 tablet by mouth daily 30 tablet Active Active Problems Problem Noted Date Diagnosed Date Normocytic normochromic anemia 02/17/2021 Pulmonary infiltrate 02/15/2021 Acute pulmonary edema 02/15/2021 Pleural effusion, bilateral 02/15/2021 Morbid obesity with BMI of 45.0-49.9, adult 01/28 Suspected sleep apnea 02/15/2021 Acute on chronic respiratory failure with hypoxia and hypercapnia 02/14/2021 Social History Tobacco Use Types Packs/Day Years Used Date Smoking Tobacco: Never Alcohol Use Standard Drinks/Week Comments Never 0 (1 standard drink = 0.6 oz pur e alcohol) Comments Unknown Sex and Gender Information Value Date Recorded Sex Assigned at Not on file Legal Sex Female 12:50 AM EDT Gender Identity Not on file Sexual Orientation Not on file Last Filed Vital Signs Vital Sign Reading Time Taken Comments Blood Pressure 129/77 02/24/2021 11:15 AM EDT Pulse 63 02/24/2021 11:15 AM EDT Temperature 36.8 C (98.2 F) 02/24/2021 8:00 AM EDT Respiratory Rate 20 02/24/2021 8:00 AM EDT Oxygen Saturation 95% 02/24/2021 8:00 AM EDT Inhaled Oxygen Concentration - - Weight 107.3 kg (236 lb 9.6 oz) 02/24/2021 3:23 AM EDT Height 165.1 cm (5' 5 ) 02/19/2021 3:15 PM EDT Body Mass Index 39.37 02/19/2021 3:15 PM EDT Plan of Treatment Not on file Insurance MEDICARE MEDICAID [place] Advance Directives Documents on File Type Date Recorded 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
--- NOTE | 2025-02-23 09:22 | CT_ITS ---
PROCEDURE INFORMATION: Exam: CTA Chest With Contrast Exam date and time: 02/23/2025 10:26 AM Age: 74 years old Clinical indication: Other: Dyspnea, le edema, febrile TECHNIQUE: Imaging protocol: Computed tomographic angiography of the chest with contrast. Exam focused on the arteries. 3D rendering (Not supervised by radiologist): MIP and/or 3D reconstructed images were created by the technologist. Radiation optimization: All CT scans at this facility use at least one of these dose optimization techniques: automated exposure control; mA and/or kV adjustment per patient size (includes targeted exams where dose is matched to clinical indication); or iterative reconstruction. Contrast material: ISO 370; Contrast volume: 70 ml; Contrast route: INTRAVENOUS (IV); COMPARISON: CR XR CHEST PORTABLE 03/23/2022 7:03 AM FINDINGS: Pulmonary arteries: Normal. No pulmonary emboli. Aorta: Unremarkable. No aortic aneurysm. No aortic dissection. Lungs: Mild multiple scattered atelectasis and/or scarring. Tracheobronchomalacia. Pleural spaces: Unremarkable. No pneumothorax. No pleural effusion. Heart: Unremarkable. No cardiomegaly. No pericardial effusion. Lymph nodes: Unremarkable. No enlarged lymph nodes. Diaphragm: Small-sized hiatal hernia. Gallbladder and biliary ducts: Gallbladder surgically absent. Bones/joints: Multilevel thoracic spine degenerative disc space narrowing and osteophyte formation. Mild scoliosis of the thoracolumbar spine. Soft tissues: Unremarkable. IMPRESSION: 1. No acute findings. 2. Other (less critical/noncritical/incidental) findings as above; please refer to the body of report for further details.
--- NOTE | 2025-02-23 09:25 | [facility].EDGENADL ---
Discharge Plan Disposition Patient Disposition: Admitted Prescriptions Prescriptions: No Action Eliquis 5 mg tablet 5 mg PO ONCE hydralazine 50 mg tablet 50 mg PO ONCE potassium chloride 10 mEq capsule, extended release 10 meq PO DAILY buspirone 10 mg tablet 10 mg PO DAILY alprazolam 0.5 mg tablet 0.5 mg PO DAILY PRN amlodipine 5 mg tablet 5 mg PO DAILY melatonin 3 mg tablet 3 mg PO DAILY furosemide 40 mg tablet 40 mg PO DAILY metoprolol tartrate 75 mg tablet 75 mg PO DAILY mirabegron [Myrbetriq] 50 mg tablet extended release 24 hr PO loratadine 10 mg tablet 10 mg PO DAILY clotrimazole-betamethasone 1-0.05 % cream topical tamsulosin 0.4 mg capsule PO sertraline 50 mg tablet 50 mg PO DAILY ropinirole 1 mg tablet 1 mg PO DAILY gabapentin 100 mg capsule 100 mg PO DAILY tramadol 50 mg tablet 50 mg PO DAILY citalopram 10 mg tablet 10 mg PO DAILY Ear Wax Removal Drops 6.5 % drops 1 drp Ear-Both DAILY docusate sodium 50 mg/5 mL liquid 50 mg PO ONCE Sore Throat (benzocaine-menth) 15-3.6 mg lozenge PO ONCE levothyroxine 125 mcg tablet 125 mcg PO DAILY sennosides [senna] 8.6 mg tablet 8.6 mg PO DAILY nystatin 100,000 unit/gram powder 1 applic topical ONCE gentamicin 0.3 % drops 1 drp Ear-Both HS albuterol sulfate 0.63 mg/3 mL solution for nebulization 0.63 mg inhalation Referrals Follow up/Referrals: Provider,Referral, MD [Primary Care Provider, Medical] - See instructions Clinical Impressions Clinical Impression: Acute encephalopathy, Fever, Acute hypoxic respiratory failure, Pneumonia, Severe sepsis Print Language Print Language: Serbian Discharge ED Provider: Rogelio Randolph General Adult HPI General Chief complaint: Fever Stated complaint: Fever Time Seen by Provider: 02/23/25 09:16 Mode of Arrival: EMS Source of Information: EMS Description of Symptoms (Recalled from ER Triage Doc. by RN): ems states they were caled to jail for patient that was found rigid and blue. they report a possible seizure but no history of seizures and not witnessed. oxygen sat was 84% on room air. they applied 2 Liters NC. patients alert oriented. only reporting righ shoulder pain History of Present Illness HPI narrative: Patient is a 74-year-old female who is a resident of [facility] sent in for multiple complaints. Initially the call was that there was a possible seizure however it was further discovered that no seizure-like activity was noticed they walked in the patient's room and she was in rigid and blue. She was satting 84% on room air and improved on 2 L nasal cannula. Apparently she does wear oxygen at times when she needs. She has a history documented in her bedside charts of chronic respiratory failure as well as systolic and diastolic heart failure. She is only oriented to self so history is severely limited. She was also noted to be febrile to [facility] Patient is unable to articulate any specific complaints to me. Related Data Home Medications ?Medication ?Instructions ?Recorded ?Confirmed albuterol sulfate 0.63 mg/3 mL 0.63 mg inhalation 07/01/24 10/29/24 solution for nebulization alprazolam 0.5 mg tablet 0.5 mg PO DAILY PRN 07/01/24 10/29/24 amlodipine 5 mg tablet 5 mg PO DAILY 07/01/24 10/29/24 apixaban 5 mg tablet (Eliquis) 5 mg PO ONCE 07/01/24 10/29/24 benzocaine 15 mg-menthol 3.6 mg blanca PO ONCE 07/01/24 10/29/24 lozenges (Sore Throat (benzocaine with menthol)) buspirone 10 mg tablet 10 mg PO DAILY 07/01/24 10/29/24 carbamide peroxide 6.5 % ear drops 1 drp Ear-Both DAILY 07/01/24 10/29/24 (Ear Wax Removal Drops) citalopram 10 mg tablet 10 mg PO DAILY 07/01/24 10/29/24 clotrimazole-betamethasone 1 applic topical 07/01/24 10/29/24 %-0.05 % topical cream docusate sodium 50 mg/5 mL oral 50 mg PO ONCE 07/01/24 10/29/24 liquid furosemide 40 mg tablet 40 mg PO DAILY 07/01/24 10/29/24 gabapentin 100 mg capsule 100 mg PO DAILY 07/01/24 10/29/24 gentamicin 0.3 % eye drops 1 drp Ear-Both HS 07/01/24 10/29/24 hydralazine 50 mg tablet 50 mg PO ONCE 07/01/24 10/29/24 levothyroxine 125 mcg tablet 125 mcg PO DAILY 07/01/24 10/29/24 loratadine 10 mg tablet 10 mg PO DAILY 07/01/24 10/29/24 melatonin 3 mg tablet 3 mg PO DAILY 07/01/24 10/29/24 metoprolol tartrate 75 mg tablet 75 mg PO DAILY 07/01/24 10/29/24 mirabegron 50 mg tablet,extended mg PO 07/01/24 10/29/24 release 24 hr (Myrbetriq) nystatin 100,000 unit/gram topical 1 applic topical ONCE 07/01/24 10/29/24 powder potassium chloride 10 mEq 10 meq PO DAILY 07/01/24 10/29/24 capsule,extended release ropinirole 1 mg tablet 1 mg PO DAILY 07/01/24 10/29/24 sennosides 8.6 mg tablet (senna) 8.6 mg PO DAILY 07/01/24 10/29/24 sertraline 50 mg tablet 50 mg PO DAILY 07/01/24 10/29/24 tamsulosin 0.4 mg capsule mg PO 07/01/24 10/29/24 tramadol 50 mg tablet 50 mg PO DAILY 07/01/24 10/29/24 Allergies Allergy/AdvReac Type Severity Reaction Status Date / Time No Known Allergies Allergy Verified 10/29/24 10:52 [facility] Disclaimer: The information contained in this section may have been updated after the patient was seen, as this information can be updated by other users. Medical History Bilateral impacted cerumen Right ear pain Impacted cerumen Hearing loss Surgical History History of cholecystectomy History of partial hysterectomy Social History Smoking Status: Former smoker alcohol intake: never current occupational status: retired Travel in the last 8 weeks?: None Have you lived/traveled outside [place] in past 30 days?: No Contact w/someone who lives/traveled outside US past 30 days?: No Exposure to someone with infectious disease in past 14 days?: No Do you have a fever (greater than 100.4 F or 38 C)?: No Have you tested positive for COVID-19?: No Exposed to someone with COVID-19 in past 14 days?: No Do you have a sore throat?: No Do you have a cough?: No Do you have any weakness?: No Do you have any diarrhea?: No Are you experiencing any unusual bleeding?: No Do you have any muscle aches/pain?: No Do you have any abdominal pain?: No Are you experiencing loss of taste or smell?: No Other Medical History Have you received the Flu Vaccine for this season: No Have you received the Pneumonia Vaccine: No ROS Obtained: Yes All systems reviewed & no additional complaints except as documented Physical Exam General General appearance: alert (2 L nasal cannula administered with oxygen saturations in the mid 90s no respiratory distress) Chest Chest inspection: Present normal inspection and symmetric chest wall rise Respiratory Respiratory exam: Present normal lung sounds bilaterally; Absent respiratory distress Cardiovascular Cardiovascular exam: Present regular rate and normal rhythm Abdominal Exam Abdominal exam: Present soft; Absent distention or tenderness Extremities Exam Extremities exam: Present other (Severe bilateral chronic lower extremity edema with symmetric erythema circumferentially around bilateral lower legs consistent with chronic hemosiderin deposits and venous insufficiency) Neurological Exam Neurological exam: Present alert; Absent oriented X3 (Only oriented to self moving all extremities) Medical Decision Making Medical Records Screening: Per USPSTF and CDC recommendations, given the prevalence of disease in our region, it is our hospital?s policy to screen for HIV and viral Hepatitis for all patients aged 18 and over and those with ongoing risk factors. [place] Inquiry Pt receiving controlled substance: No Vital Signs: 02/23/25 09:19 02/23/25 09:25 02/23/25 09:54 Temperature 101.1 F H Temperature Source Oral Oral Pulse Rate 86 Pulse Rate [Right Radial] 88 Respiratory Rate 19 Blood Pressure 142/77 H Blood Pressure [Right Arm] 127/68 Blood Pressure Mean [Right Arm] 87 Blood Pressure Source [Right Arm] Automatic Cuff Blood Pressure Position [Right Arm] Supine 02 Sat by Pulse Oximetry 93 L 96 Oxygen Delivery Method Nasal Cannula Nasal Cannula Oxygen Flow Rate (LPM) 2 3 02/23/25 10:00 Temperature Temperature Source Pulse Rate 85 Pulse Rate [Right Radial] Respiratory Rate Blood Pressure 133/61 Blood Pressure [Right Arm] Blood Pressure Mean [Right Arm] Blood Pressure Source [Right Arm] Blood Pressure Position [Right Arm] 02 Sat by Pulse Oximetry 96 Oxygen Delivery Method Nasal Cannula Oxygen Flow Rate (LPM) 3 Lab Data Lab results reviewed: Yes I reviewed the patient's lab results. Lab Results 02/23/25 09:24: VBG pH 7.37, VBG pCO2 53.0 H, VBG pO2 49.1 H, VBG HCO3 30.2 H, VBG Total CO2 31.8 H, VBG O2 Saturation 84.9 H, VBG Base Excess 4.9 H, VBG Lactic Acid 2.9 H, HIV Ag/Ab Combo Qual Negative 02/23/25 09:26: WBC 19.2 H, RBC 4.03 L, Hgb 12.7, Hct 39.3, MCV 97.5, MCH 31.5 H, MCHC 32.3, RDW 13.9, Plt Count 220, MPV 10.2, Neut % (Auto) 93.9 H, Lymph % (Auto) 1.2 L, [place] % (Auto) 3.8, Eos % (Auto) 0.1, Baso % (Auto) 0.2, Neut # (Auto) 18.1 H, Lymph # (Auto) 0.2 L, [place] # (Auto) 0.7, Eos # (Auto) 0.0, Baso # (Auto) 0.0, Total Counted 100, Neutrophils % (Manual) 96 H, Lymphocytes % (Manual) 1 L, Monocytes % (Manual) 3, Platelet Estimate Normal, RBC Morphology Normal, Sodium 139, Potassium 4.2, Chloride 97 L, Carbon Dioxide 33 H, Anion Gap 13.2, BUN 15, Creatinine 1.10 H, Estimated Creat Clear 31, Estimated GFR 48 L, Est GFR ( Amer) 58 L, Glucose 147 H, Calcium 9.1, Total Bilirubin 0.7, AST 35, ALT 24, Alkaline Phosphatase 87, Troponin I < 0.01, NT-Pro-B Natriuret Pep 823 H, Total Protein 8.0, Albumin 4.3, Globulin 3.7 H, Albumin/Globulin Ratio 1.2 02/23/25 09:54: Urine Color Yellow, Urine Appearance Clear, Urine pH 6.0, Ur Specific [place] 1.015, Urine Protein Trace, Urine Glucose (UA) Negative, Urine Ketones Negative, Urine Blood Negative, Urine Nitrate Negative, Urine Bilirubin Negative, Urine Urobilinogen 0.2, Ur Leukocyte Esterase Negative, Urine RBC None, Urine WBC None, Ur Squamous Epith Cells Occasional, Ur Transition Epith Cell 3-5, Urine Bacteria Trace 02/23/25 10:01: SARS-CoV-2 (PCR) Not detected, Influenza A Untype (PCR) Not detected, Influenza Type B (PCR) Not detected 02/23/25 09:26 02/23/25 09:26 Orders (Tests/Meds): ED MEDICATIONS Generic Name Dose Route Start Last Admin Trade Name Freq PRN Reason Stop Dose Admin Ceftriaxone Sodium 2 gm/ 100 mls @ 200 mls/hr 02/23/25 10:52 Sodium Chloride IV 02/23/25 11:21 ONCE ONE Azithromycin 500 mg/ Sodium 250 mls @ 250 mls/hr 02/23/25 10:53 Chloride IV 02/23/25 10:54 ONCE ONE Discontinued Medications Generic Name Dose Route Start Last Admin Trade Name Freq PRN Reason Stop Dose Admin Acetaminophen 1,000 mg 02/23/25 09:28 02/23/25 10:00 Acetaminophen 500mg Tab PO 02/23/25 09:29 1,000 mg ONCE ONE Administration Iopamidol 70 ml 02/23/25 10:34 02/23/25 10:35 Iopamidol-370 (76%);100ml Bottle IV 02/23/25 10:35 70 ml ONCE ONE Administration Sodium Chloride 50 ml 02/23/25 10:34 02/23/25 10:35 0.9 % Sodium Chloride 50 Ml Vial IV 02/23/25 10:35 50 ml ONCE ONE Administration Sodium Chloride 10 ml 02/23/25 10:34 02/23/25 10:35 Sodium Chloride 0.9% 10ml Syr (Rad Only) IV 02/23/25 10:35 10 ml ONCE ONE Administration ORDERS Category Date Time Status CT angio chest PE protocol Stat Cat Scan 02/23/25 09:[address] head/brain wo con Stat Cat Scan 02/23/25 09:37 Completed BNP [NT Pro Brain Natriuretic Pep.] Stat Lab 02/23/25 09:26 Completed CBC w/Auto Diff [Complete Blood Count Auto Diff] Stat Lab 02/23/25 09:26 Completed CMP [Comprehensive Metabolic Panel] Stat Lab 02/23/25 09:26 Completed HIV Combo Stat Lab 02/23/25 09:24 Completed Hepatitis C Ab Qual. W/ RFX Stat Lab 02/23/25 09:24 Received Lactate Venous Stat Lab 02/23/25 09:33 Ordered Rapid PCR Covid and Flu A/B Stat Lab 02/23/25 10:01 Completed Trop I [Troponin I] Stat Lab 02/23/25 09:26 Completed Troponin I Q3H Lab 02/23/25 12:30 Ordered Troponin I Q3H Lab 02/23/25 15:30 Ordered UA [Urinalysis and Microscopic] Stat Lab 02/23/25 09:54 Completed Blood Culture Stat Micro 02/23/25 10:52 Ordered Venous Blood Gas Stat RT 02/23/25 09:24 Completed Tissue Perfus/Sepsis Re-Eval Sepsis Re-Evaluation Performed: Yes Date Performed: 02/23/25 Time Performed: 10:59 Medical Decision Narrative: 74-year-old jail patient presents today febrile and hypoxic. She has chronic respiratory failure and it is unclear as to whether not this is near her baseline. Will work her up for nonspecific infections including respiratory infections bacterial bloodstream infections urinary tract infections etc. She has bilateral lower extremity edema and erythema that do not appear to be consistent with cellulitis. Holding off on aggressive fluid resuscitation with her known history of heart failure and will reassess after this initial workup is complete. Reassessment 1059 we did discuss with the jail apparently she is normally awake alert oriented and ambulatory and this is significantly off her baseline. She is awake and oriented to self only right now. Therefore she has evidence of endorgan damage both from a respiratory standpoint and mental status standpoint. I do not suspect she has a ARBORER infection right now. CT scan of her head and chest were performed I personally interpreted I do not see any intracranial abnormalities but there is some right upper lobe patchy infiltrates consistent with pneumonia we will treat her with Rocephin and azithromycin. I did not aggressively fluid resuscitate her given her history of heart failure. Maps have remained above 65. Patient admitted ultimately to hospital medicine for treatment of her severe sepsis in the setting of pneumonia. Critical Care Critical Care Time Critical Care Time: Yes Attestation: On 02/23/25, the high probability of a clinically significant, sudden or life threatening deterioration of the following system(s) required my full and direct attention, intervention and personal management. The time I documented below is in addition to time spent performing reported procedures but includes the following listed in this critical care notation. Total Time Total Critical Care Time: 35
[2025-02-23 09:33] LABS: Hematocrit 39.3 % (37.0-47.0); Hemoglobin 12.7 g/dL (12.2-16.2); Immature Granulocytes % 0.8 %; Mean Corpuscular HGB Conc 32.3 g/dL (31.8-35.4); Mean Corpuscular Hemoglobin 31.5 pg (27.0-31.2); Mean Corpuscular Volume 97.5 fl (81-99); Nucleated Red Blood Cells % 0 %; Platelet Count 220 K/mm3 (142-424); Red Blood Count 4.03 M/mm3 (4.20-5.40); Red Cell Distribution Width-SD 50.4 fL; White Blood Count 19.2 K/mm3 (4.8-10.8)
--- NOTE | 2025-02-23 09:33 | PC.NURSE ---
call to lab for VBG
--- NOTE | 2025-02-23 09:33 | PC.NURSE ---
call to custodial for report from nurse staff nurse reports pt A&O, ambulatory by herself, able to speak clearly. staff nurse walked by pts room around 0600 pt was asleep 0730 nurse was called into room due to pt laying across bed and being stiff and unresponsive .
[2025-02-23 09:37] LABS: VBG HCO3 30.2 mmol/L (23-30); VBG PH 7.37 mmol/L (7.31-7.41); VBG PO2 49.1 mmol/L (28-40)
--- NOTE | 2025-02-23 09:37 | CT_ITS ---
PROCEDURE INFORMATION: Exam: CT Head Without Contrast Exam date and time: 02/23/2025 10:22 AM Age: 74 years old Clinical indication: Altered mental status/memory loss; Additional info: AMS TECHNIQUE: Imaging protocol: Computed tomography of the head without contrast. Radiation optimization: All CT scans at this facility use at least one of these dose optimization techniques: automated exposure control; mA and/or kV adjustment per patient size (includes targeted exams where dose is matched to clinical indication); or iterative reconstruction. COMPARISON: CT HEAD/BRAIN WO CON 03/23/2022 6:38 AM FINDINGS: Brain: There is no evidence of acute intracranial hemorrhage, extra-axial collection or locoregional mass effect. There are scattered hypodensities in the periventricular and subcortical white matter. The appearance is nonspecific, but most likely represents chronic small vessel disease in a person of this age Cerebral ventricles: The ventricles, sulci and cisterns are normal in size and configuration for patient's age. No hydrocephalus or midline structure shift Pituitary gland and sella: Sellar/parasellar structures, craniocervical junction and orbits are unremarkable Paranasal sinuses: Visualized sinuses are unremarkable. No fluid levels. Mastoid air cells: Visualized mastoid air cells are well aerated. Bones: No calvarial fracture Soft tissues: Unremarkable. IMPRESSION: No acute intracranial abnormality. No calvarial fracture.
[2025-02-23 09:39] LABS: Lactate Venous 2.9 mmol/L (0.4-2.0); VBG PCO2 53.0 mmol/L (35-51)
[2025-02-23 09:45] LABS: Alanine Aminotransferase 24 U/L (12-78); Albumin Level 4.3 g/dl (3.5-5.0); Albumin/Globulin Ratio 1.2 (1.1-1.8); Alkaline Phosphatase 87 U/L (38-126); Anion Gap 13.2 mEq/L (5-15); Aspartate Amino Transferase 35 U/L (14-36); Bilirubin,Total 0.7 mg/dl (0.2-1.3); Blood Urea Nitrogen 15 mg/dl (7-17); Calcium 9.1 mg/dl (8.4-10.2); Carbon Dioxide 33 mmol/L (22.0-30.0); Chloride 97 mmol/L (98-107); Creatinine Clearance Estimated 31 mL/min (50-200); Creatinine,Serum 1.10 mg/dl (0.52-1.04); Estimated Glomerular Filt Rate 48 ml/min (>60); GFR (African American) 58 ML/MIN (>60); Globulin 3.7 g/dL (1.3-3.2); Glucose 147 mg/dl (74-100); Potassium 4.2 mmoL/L (3.5-5.1); Sodium 139 mmol/L (136-145); Total Protein,Serum 8.0 g/dl (6.3-8.2)
[2025-02-23 09:54] LABS: NT Pro Brain Natriuretic Pep. 823 pg/mL (0-450)
[2025-02-23 10:00] LABS: Troponin I < 0.01 ng/ml (0.00-0.034)
[2025-02-23] MEDS: ACETAMINOPHEN 500MG TAB 1000 MG PO (10:00)
[2025-02-23 10:02] LABS: Microscopic, Urine URINE MICROSCOPIC (MICROSCOPIC)
[2025-02-23 10:03] LABS: Bilirubin,Urine Negative (Negative); Color,Urine YELLOW (Yellow); Glucose,Urine (UA) Negative (Negative); Ketones,Urine Negative (Negative); Leukocyte Esterase,Urine Negative (Negative); PH,Urine 6.0 (5.0-8.5); Protein,Urine TRACE (Negative); Specific Gravity, Urine 1.015 (1.005-1.030); Urobilinogen,Urine 0.2 EU/dl (0.2)
[2025-02-23 10:04] LABS: Coronavirus 19, PCR Not Detected (NotDetected); Influenza A, PCR Not Detected (NotDetected); Influenza B, PCR Not Detected (NotDetected)
[2025-02-23 10:10] LABS: Bacteria,Urine Trace /lpf; Squamous Epithelial Cell,Urine Occasional #/hpf (0-5)
[2025-02-23 10:13] LABS: RBC Morphology Normal; Total Cells Counted 100
[2025-02-23] MEDS: IOPAMIDOL-370 (76%);100ML BOTTLE 70 ML IV (10:35)
[2025-02-23] MEDS: 0.9 % SODIUM CHLORIDE 50 ML VIAL IV (10:35)
[2025-02-23] MEDS: SODIUM CHLORIDE 0.9% 10ML SYR (RAD ONLY) 10 ML IV (10:35)
--- NOTE | 2025-02-23 10:56 | PC.NURSE ---
on phone with hospitalist
--- NOTE | 2025-02-23 10:58 | PC.NURSE ---
I notified HS of the need for a bed to admit to the hospitalist.
[2025-02-23 11:02] LABS: Hepatitis C Ab Qual. W/ RFX NEGATIVE (Negative)
--- NOTE | 2025-02-23 11:02 | EXP.HP ---
History of Present Illness *Admission Date: 02/23/25 *Reason for visit:: altered mental status, hypoxic *History of present illness: Ms. Basilio is a 74-year-old female who resides at [facility]. Has history of lymphedema, Neuropathy, hypothyroid, hypertension. Resides at [facility] due to previous history of trach, respiratory failure, obesity. Was reportedly independently mobile and oriented to self and place. EMS was called as patient was found hypoxic and nonresponsive this morning. O2 sats were in the 80s on room air. She is supposed to wear oxygen at least at night if not continuous. Oxygen was placed on patient and she became more alert and oriented. Was sent to the ER for evaluation. On arrival, found to have a white count of 19. Temperature 101.1. Concern for sepsis with possible pneumonia. Initiated on broad-spectrum antibiotics and medicine consulted for further management. After arrival to the floor, patient's left leg was noted to be red and warm with erythema up to proximal thigh. Concerning for cellulitis. Has significant chronic stasis changes of her bilateral lower extremities with swelling of her feet. Does not appear to be on diuretics per her med rec from her nursing facility. Had some improvement in mentation and opened eyes to voice but not able to provide significant answers or history. [facility] Disclaimer: The information contained in this section may have been updated after the patient was seen, as this information can be updated by other users. Medical History Bilateral impacted cerumen Right ear pain Impacted cerumen Hearing loss Surgical History History of cholecystectomy History of partial hysterectomy Social History Smoking Status: Former smoker alcohol intake: never current occupational status: retired Travel in the last 8 weeks?: None Have you lived/traveled outside US in past 30 days?: No Contact w/someone who lives/traveled outside US past 30 days?: No Exposure to someone with infectious disease in past 14 days?: No Do you have a fever (greater than 100.4 F or 38 C)?: No Have you tested positive for COVID-19?: No Exposed to someone with COVID-19 in past 14 days?: No Do you have a sore throat?: No Do you have a cough?: No Do you have any weakness?: No Do you have any diarrhea?: No Are you experiencing any unusual bleeding?: No Do you have any muscle aches/pain?: No Do you have any abdominal pain?: No Are you experiencing loss of taste or smell?: No Other Medical History Have you received the Flu Vaccine for this season: No Have you received the Pneumonia Vaccine: No Review of Systems Review of Systems Review of systems:: unable to obtain (Patient poor historian) Meds Home Medications and Allergies Home Medications ?Medication ?Instructions ?Recorded ?Confirmed ?Type albuterol sulfate 0.63 mg/3 mL 0.63 mg inhalation Q6H PRN SOA 07/01/24 02/23/25 History solution for nebulization alprazolam 0.5 mg tablet 0.5 mg PO DAILY PRN Anxiety 07/01/24 02/23/25 History amlodipine 5 mg tablet 5 mg PO DAILY 07/01/24 02/23/25 History apixaban 5 mg tablet (Eliquis) 5 mg PO ONCE 07/01/24 02/23/25 History benzocaine 15 mg-menthol 3.6 mg 1 blanca PO NEEDED PRN Sore Throat 07/01/24 02/23/25 History lozenges (Sore Throat (benzocaine with menthol)) buspirone 10 mg tablet 10 mg PO DAILY 07/01/24 02/23/25 History carbamide peroxide 6.5 % ear drops 1 drp Ear-Both DAILY 07/01/24 02/23/25 History (Ear Wax Removal Drops) citalopram 10 mg tablet 10 mg PO DAILY 07/01/24 02/23/25 History clotrimazole-betamethasone 1 1 applic topical NEEDED PRN 07/01/24 02/23/25 History %-0.05 % topical cream FUNGAL INFECTION docusate sodium 50 mg/5 mL oral 50 mg PO ONCE 07/01/24 02/23/25 History liquid furosemide 40 mg tablet 40 mg PO DAILY 07/01/24 02/23/25 History gabapentin 100 mg capsule 100 mg PO DAILY 07/01/24 02/23/25 History gentamicin 0.3 % eye drops 1 drp Ear-Both HS 07/01/24 02/23/25 History levothyroxine 125 mcg tablet 125 mcg PO DAILY 07/01/24 02/23/25 History loratadine 10 mg tablet 10 mg PO DAILY 07/01/24 02/23/25 History melatonin 3 mg tablet 3 mg PO DAILY 07/01/24 02/23/25 History metoprolol tartrate 75 mg tablet 37.5 mg PO BID 07/01/24 02/23/25 History mirabegron 50 mg tablet,extended 50 mg PO DAILY 07/01/24 02/23/25 History release 24 hr (Myrbetriq) nystatin 100,000 unit/gram topical 1 applic topical ONCE 07/01/24 02/23/25 History powder potassium chloride 10 mEq 20 meq PO DAILY 07/01/24 02/23/25 History capsule,extended release ropinirole 1 mg tablet 1 mg PO DAILY 07/01/24 02/23/25 History sennosides 8.6 mg tablet (senna) 8.6 mg PO DAILY 07/01/24 02/23/25 History sertraline 50 mg tablet 50 mg PO DAILY 07/01/24 02/23/25 History tamsulosin 0.4 mg capsule 0.4 mg PO DAILY 07/01/24 02/23/25 History tramadol 50 mg tablet 50 mg PO DAILY 07/01/24 02/23/25 History acetaminophen 500 mg tablet 500 mg PO Q6H PRN Pain (Scale 02/23/25 02/23/25 History Score 1-3) hydralazine 50 mg tablet 50 mg PO TIDP PRN Anxiety 02/23/25 02/23/25 History New Prescriptions to Start Prescriptions: Allergies Allergy/AdvReac Type Severity Reaction Status Date / Time aspirin Allergy Rash Verified 02/23/25 17:22 bupropion Allergy Rash Verified 02/23/25 17:22 cephalexin (From Keflex) Allergy Rash Verified 02/23/25 17:22 Cephalosporins Allergy Rash Verified 02/23/25 17:22 fluconazole (From Diflucan) Allergy Rash Verified 02/23/25 17:22 lisinopril Allergy Rash Verified 02/23/25 17:22 metoclopramide (From Reglan) Allergy Rash Verified 02/23/25 17:22 Penicillins Allergy Rash Verified 02/23/25 17:22 Sulfa (Sulfonamide Allergy Rash Verified 02/23/25 17:22 Antibiotics) influenza virus vaccine ts AdvReac Anaphylaxis Verified 02/23/25 17:22 [id number] (36 mos,up) (From Fluarix) Exam Data for Last 24 hours Vital signs and Labs for Last 24 Hours: Temp Pulse Resp BP Pulse Ox O2 Del Method O2 Flow Rate 101.1 F H 85 19 133/61 96 Nasal Cannula 3 02/23/25 09:19 02/23/25 10:00 02/23/25 09:19 02/23/25 10:00 02/23/25 10:00 02/23/25 10:00 02/23/25 10:00 Laboratory Results - last 24 hr 02/23/25 09:24: VBG pH 7.37, VBG pCO2 53.0 H, VBG pO2 49.1 H, VBG HCO3 30.2 H, VBG Total CO2 31.8 H, VBG O2 Saturation 84.9 H, VBG Base Excess 4.9 H, VBG Lactic Acid 2.9 H, HIV Ag/Ab Combo Qual Negative 02/23/25 09:26: WBC 19.2 H, RBC 4.03 L, Hgb 12.7, Hct 39.3, MCV 97.5, MCH 31.5 H, MCHC 32.3, RDW 13.9, Plt Count 220, MPV 10.2, Neut % (Auto) 93.9 H, Lymph % (Auto) 1.2 L, [place] % (Auto) 3.8, Eos % (Auto) 0.1, Baso % (Auto) 0.2, Neut # (Auto) 18.1 H, Lymph # (Auto) 0.2 L, [place] # (Auto) 0.7, Eos # (Auto) 0.0, Baso # (Auto) 0.0, Total Counted 100, Neutrophils % (Manual) 96 H, Lymphocytes % (Manual) 1 L, Monocytes % (Manual) 3, Platelet Estimate Normal, RBC Morphology Normal, Sodium 139, Potassium 4.2, Chloride 97 L, Carbon Dioxide 33 H, Anion Gap 13.2, BUN 15, Creatinine 1.10 H, Estimated Creat Clear 31, Estimated GFR 48 L, Est GFR ( Amer) 58 L, Glucose 147 H, Calcium 9.1, Total Bilirubin 0.7, AST 35, ALT 24, Alkaline Phosphatase 87, Troponin I < 0.01, NT-Pro-B Natriuret Pep 823 H, Total Protein 8.0, Albumin 4.3, Globulin 3.7 H, Albumin/Globulin Ratio 1.2 02/23/25 09:54: Urine Color Yellow, Urine Appearance Clear, Urine pH 6.0, Ur Specific [place] 1.015, Urine Protein Trace, Urine Glucose (UA) Negative, Urine Ketones Negative, Urine Blood Negative, Urine Nitrate Negative, Urine Bilirubin Negative, Urine Urobilinogen 0.2, Ur Leukocyte Esterase Negative, Urine RBC None, Urine WBC None, Ur Squamous Epith Cells Occasional, Ur Transition Epith Cell 3-5, Urine Bacteria Trace 02/23/25 10:01: SARS-CoV-2 (PCR) Not detected, Influenza A Untype (PCR) Not detected, Influenza Type B (PCR) Not detected I & O for Last 24 hours: Intake & Output 02/20/25 02/21/25 02/22/25 02/23/25 23:59 23:59 23:59 23:59 Weight 136.078 kg Constitutional Constitutional: mild distress, morbidly obese, chronically ill appearing and somnolent *Routine HEENT Exam Head: Present normocephalic Eye: Present EOMI and PERRL ENT: Present mucous membranes moist *Routine Neck Exam Neck: Present supple; Absent lymphadenopathy *Routine Respiratory Exam Respiratory: Present prolonged expiratory phase, distant breath sounds and diminished air movement; Absent rhonchi, wheezes or crackles *Routine Cardiovascular Exam Cardiovascular: Present RRR *Routine Abdominal Exam Abdominal: Present soft, normoactive bowel sounds and obese; Absent tenderness *Routine Rectal Exam Rectal:: deferred *Routine Genitalia Exam Genitalia:: deferred *Routine Extremities Exam Extremities: Present edema; Absent cyanosis or clubbing Comments: Chronic stasis changes bilateral lower extremities, 3+ edema to thighs. Has redness streaking up her left leg to the proximal thigh. Leading edge marked with marker. Warm disproportionate to right leg. Scabbing and wounds bilateral lower extremities consistent with stasis ulcerations. *Routine Skin Exam Skin: Present erythema, warm and lesions; Absent rash Comments: CT scan findings and extremity exam above *Routine Neurological Exam Neurological: Present alert, altered mental status and moving all extremities Comments: Somnolent but did open eyes to voice on exam, fell back asleep easily. Unable to gain much history from patient. Assessment and Plan *Assessment and plan (1) Severe sepsis: Status: Acute Category: Medical Code(s): A41.9 - Sepsis, unspecified organism; R65.20 - Severe sepsis without septic shock (2) Acute encephalopathy: Problem Comment: metabolic; present on admission Status: Acute Category: Medical Code(s): G93.40 - Encephalopathy, unspecified (3) Morbid obesity with BMI of 40.0-44.9, adult: Status: Acute Category: Medical Code(s): E66.01 - Morbid (severe) obesity due to excess calories; Z68.41 - Body mass index [BMI] 40.0-44.9, adult (4) Cellulitis of left lower leg: Status: Acute Category: Medical Code(s): L03.116 - Cellulitis of left lower limb Plan Ms. Basilio is a 74-year-old female with morbid obesity, hypothyroid, resides at [facility]. She presented with altered mental status and meeting sepsis criteria with elevated white count, fever, new oxygen requirement, and encephalopathy. Discussed case with ER physician, request admission for further management of patient's sepsis. I decided to admit for further care including IV antibiotics. Not responding to questioning or on exam. She does appear to be protecting her airway. Initiated on vancomycin, ceftriaxone, azithromycin due to initial concern for possible pneumonia. On further exam after arrival to the floor, she appears to have cellulitis superimposed on her chronic lymphedema and stasis wounds of her legs with redness up to her left thigh. Necessitating inpatient care. Problems addressed as follows: Sepsis Suspected pneumonia Cellulitis present on admission left lower extremity - Meeting criteria the white count of 19.2, suspected infection with both pneumonia and cellulitis, Fever 101.1 - Broad-spectrum antibiotics, continue Ceftriaxone 2g IV daily and azithromycin 500 mg IV daily for 3 days - Will add Comycin for cellulitis given concern for staph. - Blood and urine cultures pending. - Wound consult placed to evaluate wounds on legs. - Chest CT per my review with no significant focal consolidation. Given new oxygen or increased oxygen requirement from baseline however, concern for respiratory infection component. - Monitor for improvement with diuresis. Goal sats greater 90%, currently on 2 L oxygen Questionable CHF with volume overload: BNP elevated 823. Echo ordered for the morning. - Given her edema on exam, will initiate Bumex 1 mg IV twice daily. Hopper catheter placed due to urinary retention for strict monitoring of output. Monitor for improvement in volume overload. - Monitor kidney function and electrolytes closely. Potassium 4.2, BUN 15 with creatinine 1.1. Repeat CBC, CMP, magnesium ordered for the morning. Hypothyroid: TSH well-controlled at 2.1. Continue levothyroxine 125 mcg daily Mood disorder: Continue Zoloft 50 mg daily, citalopram 10 mg daily, and BuSpar 10 mg daily. Restless leg: Continue ropinirole 1 mg daily CAD/hypertension: Continue metoprolol tartrate 37.5 mg twice daily and Eliquis 5 mg twice daily, hold amlodipine due to normal blood pressure and swelling of legs Full code Eliquis 5 mg twice daily Cardiac diet
--- NOTE | 2025-02-23 11:37 | PC.NURSE ---
arrived by stretcher from ED
--- OUTSIDE RECORDS SUMMARY | 2025-02-23 11:43 | XMS_ITS | Clinical Summary ---
Author Organization [facility] Address [address], [address] [place] [address] Care Team Providers Care Head Well Puller Name Role Phone Unavailable Primary Care Provider [...] mouth nightly Active Multiple Vitamins-Minera ls (THERAPEUTIC MULTIVITAMIN-IL NERALS) tablet Take 1 tablet by mouth [...] Documents on File Type Date Recorded Patient Grill Associate Expl anation ACP-Do Not Resuscitate 02/25/2021 2:10 PM * Full Code (Latest Code Status on File) Date Activated Date Inactivated Comments 02/14/2021 11:18 AM 02/24/2021 3:06 PM Healthcare Agents on File Name Relationship Healthcare Agent Relationshi p Communication Trevorjosselin Jarrell Brother/Sister Primary Decision Maker
--- NOTE | 2025-02-23 12:18 | EXP.PHA.CONS ---
Pharmacy Consult Date: 02/23/25 Time: 12:19 Referring provider: DR. HOLLOWAY Reason for Consult:: VANCOMYCIN DOSING Allergies Allergy/AdvReac Type Severity Reaction Status Date / Time No Known Allergies Allergy Verified 10/29/24 10:52 Home Medications ?Medication ?Instructions ?Recorded ?Confirmed ?Type albuterol sulfate 0.63 mg/3 mL 0.63 mg inhalation 07/01/24 10/29/24 History solution for nebulization alprazolam 0.5 mg tablet 0.5 mg PO DAILY PRN 07/01/24 10/29/24 History amlodipine 5 mg tablet 5 mg PO DAILY 07/01/24 10/29/24 History apixaban 5 mg tablet (Eliquis) 5 mg PO ONCE 07/01/24 10/29/24 History benzocaine 15 mg-menthol 3.6 mg blanca PO ONCE 07/01/24 10/29/24 History lozenges (Sore Throat (benzocaine with menthol)) buspirone 10 mg tablet 10 mg PO DAILY 07/01/24 10/29/24 History carbamide peroxide 6.5 % ear drops 1 drp Ear-Both DAILY 07/01/24 10/29/24 History (Ear Wax Removal Drops) citalopram 10 mg tablet 10 mg PO DAILY 07/01/24 10/29/24 History clotrimazole-betamethasone 1 applic topical 07/01/24 10/29/24 History %-0.05 % topical cream docusate sodium 50 mg/5 mL oral 50 mg PO ONCE 07/01/24 10/29/24 History liquid furosemide 40 mg tablet 40 mg PO DAILY 07/01/24 10/29/24 History gabapentin 100 mg capsule 100 mg PO DAILY 07/01/24 10/29/24 History gentamicin 0.3 % eye drops 1 drp Ear-Both HS 07/01/24 10/29/24 History hydralazine 50 mg tablet 50 mg PO ONCE 07/01/24 10/29/24 History levothyroxine 125 mcg tablet 125 mcg PO DAILY 07/01/24 10/29/24 History loratadine 10 mg tablet 10 mg PO DAILY 07/01/24 10/29/24 History melatonin 3 mg tablet 3 mg PO DAILY 07/01/24 10/29/24 History metoprolol tartrate 75 mg tablet 75 mg PO DAILY 07/01/24 10/29/24 History mirabegron 50 mg tablet,extended mg PO 07/01/24 10/29/24 History release 24 hr (Myrbetriq) nystatin 100,000 unit/gram topical 1 applic topical ONCE 07/01/24 10/29/24 History powder potassium chloride 10 mEq 10 meq PO DAILY 07/01/24 10/29/24 History capsule,extended release ropinirole 1 mg tablet 1 mg PO DAILY 07/01/24 10/29/24 History sennosides 8.6 mg tablet (senna) 8.6 mg PO DAILY 07/01/24 10/29/24 History sertraline 50 mg tablet 50 mg PO DAILY 07/01/24 10/29/24 History tamsulosin 0.4 mg capsule mg PO 07/01/24 10/29/24 History tramadol 50 mg tablet 50 mg PO DAILY 07/01/24 10/29/24 History New Prescriptions to Start Prescriptions: Height: 1.6 m Weight: 112.4 kg Laboratory Results:: Laboratory Results - last 24 hr 02/23/25 09:24: VBG pH 7.37, VBG pCO2 53.0 H, VBG pO2 49.1 H, VBG HCO3 30.2 H, VBG Total CO2 31.8 H, VBG O2 Saturation 84.9 H, VBG Base Excess 4.9 H, VBG Lactic Acid 2.9 H, HCV Ab PEDRO PABLO w/Rflx PCR Qn Negative, HIV Ag/Ab Combo Qual Negative 02/23/25 09:26: WBC 19.2 H, RBC 4.03 L, Hgb 12.7, Hct 39.3, MCV 97.5, MCH 31.5 H, MCHC 32.3, RDW 13.9, Plt Count 220, MPV 10.2, Neut % (Auto) 93.9 H, Lymph % (Auto) 1.2 L, [place] % (Auto) 3.8, Eos % (Auto) 0.1, Baso % (Auto) 0.2, Neut # (Auto) 18.1 H, Lymph # (Auto) 0.2 L, [place] # (Auto) 0.7, Eos # (Auto) 0.0, Baso # (Auto) 0.0, Total Counted 100, Neutrophils % (Manual) 96 H, Lymphocytes % (Manual) 1 L, Monocytes % (Manual) 3, Platelet Estimate Normal, RBC Morphology Normal, Sodium 139, Potassium 4.2, Chloride 97 L, Carbon Dioxide 33 H, Anion Gap 13.2, BUN 15, Creatinine 1.10 H, Estimated Creat Clear 31, Estimated GFR 48 L, Est GFR ( Amer) 58 L, Glucose 147 H, Calcium 9.1, Total Bilirubin 0.7, AST 35, ALT 24, Alkaline Phosphatase 87, Troponin I < 0.01, NT-Pro-B Natriuret Pep 823 H, Total Protein 8.0, Albumin 4.3, Globulin 3.7 H, Albumin/Globulin Ratio 1.2 02/23/25 09:54: Urine Color Yellow, Urine Appearance Clear, Urine pH 6.0, Ur Specific [place] 1.015, Urine Protein Trace, Urine Glucose (UA) Negative, Urine Ketones Negative, Urine Blood Negative, Urine Nitrate Negative, Urine Bilirubin Negative, Urine Urobilinogen 0.2, Ur Leukocyte Esterase Negative, Urine RBC None, Urine WBC None, Ur Squamous Epith Cells Occasional, Ur Transition Epith Cell 3-5, Urine Bacteria Trace 02/23/25 10:01: SARS-CoV-2 (PCR) Not detected, Influenza A Untype (PCR) Not detected, Influenza Type B (PCR) Not detected Medical History: Medical History (Updated 02/23/25 @ 11:01 by Rogelio Randolph MD) Bilateral impacted cerumen Right ear pain Impacted cerumen Hearing loss Assessment and Plan Assessment and plan all Dx Assessment and Plan for all problems:: Pharmacokinetic dosing service Objective: Patient: Floor: Age: 74 yo Serum creatinine: 1.1 mg/dL Height: 63.0 Inches Weight (kg): 112 Assessment: IBW (kg): 52.40 Dosing wt(kg): 112 Estimated Creatinine clearance (ml/min): 36.0 CRCL method: Cockcroft and Gault using ibw(default). Drug selected: Vancomycin Loading dose (mg): 0 Vd (liters): 89.6 (factor used: 0.8 L/kg) Tien (hr-1): 0.034 Half life (hrs): 20.39 Recommended dose: 1750 mg Interval: 24 hrs Infusion time (hrs): 2.0 Predicted peak (mcg/mL): 33.9 Predicted trough (mcg/mL): 16.05 Total body weight is being used for vancomycin dosing. Recommendations: Give Vancomycin 1750 mg q 24 hrs with an expected Cpeak of 33.9 mcg/ml and an expected Ctrough of 16.05 mcg/ml ----Vanco only - ignore for aminoglycosides----- CLvanco= 3.05 L/hr AUC 0-24 /DESTINI Data: DESTINI 0.5 mcg/mL: AUC/DESTINI: 1147.5 DESTINI 1.0 mcg/mL: AUC/DESTINI: 573.8 --------- DESTINI 1.5 mcg/mL: AUC/DESTINI: 382.5 DESTINI 2.0 mcg/mL: AUC/DESTINI: 286.9
[2025-02-23] MEDS: IPRATROPIUM/ALBUTEROL 3 ML NEB IH ×3 (12:26→23:48)
--- NOTE | 2025-02-23 12:27 | PC.NURSE ---
Renee ALEXANDER was notified of temp at 12:15PM-Rosa
[2025-02-23] MEDS: AZITHROMYCIN 500 MG in 0.9 % SODIUM CHLORIDE 250 ML 250 MG IV (12:29)
[2025-02-23 12:51] LABS: Troponin I < 0.01 ng/ml (0.00-0.034)
--- NOTE | 2025-02-23 13:12 | PC.WOUNDNOTE ---
REDNESS NOTED TO BLE. WARMTH ALSO NOTED. MULTIPLE SCABBED OVER AREAS-NONE OPEN. REDNESS EXTENDS TO UPPER LEFT THIGH MARKED IN PICTURE.
[2025-02-23 13:37] LABS: Reflex Lactic Add Lactic Reflex
[2025-02-23] MEDS: VANCOMYCIN/WATER FOR INJ (PEG) 1.75 GM/350 ML PIGGYBACK IV (13:43)
[2025-02-23] MEDS: BUMETANIDE 1MG/4ML VIAL 1 MG IV (13:43)
[2025-02-23 14:00] LABS: Thyroid Stimulating Hormone 2.13 uIU/mL (0.465-4.68)
[2025-02-23 14:17] LABS: Lactic Acid Follow Up (RFLX 1) 2.3 mmol/L (0.7-2.1)
[2025-02-23 15:45] LABS: Troponin I < 0.01 ng/ml (0.00-0.034)
[2025-02-23 16:02] LABS: Reflex Lactic (2 hrs) Add Lactic Reflex
[2025-02-23 16:13] LABS: Lactic Acid Follow up (RFLX 2) 2.7 mmol/L (0.7-2.1)
--- NOTE | 2025-02-23 16:51 | PC.NURSE ---
Pt was a new admit from the ER. Pt alert to name, time, and birthday on arrival to the floor. Pt was drowsy earlier in shift but has been more awake and alert this afternoon. Pt speech continues to be garbled/mumbled. IV abx infused per JUL. Pt BLE red, zahra, and edematous. Redness outlined with sharpie on left leg per hospitalist. See nurse wound note. Wound care and PT/OT consulted. IV bumex given per JUL. Pt had not had any urine output. Pt bladder scanned showing 668mL. Hospitalist notified. Hopper insertion ordered. Pt tolerated well. 1,000mL of urine out immediately. Urine sample sent. Charge nurse has called senior care multiple times to attempt to get information to get med rec completed. shelter stated they would call back. Pt has been turned Q2. Pt resting in bed supine with no further needs voiced at this time. Call light within reach. Bed alarm in place.
[2025-02-23 18:02] LABS: Microscopic, Urine URINE MICROSCOPIC (MICROSCOPIC)
[2025-02-23 18:05] LABS: Bilirubin,Urine Negative (Negative); Color,Urine YELLOW (Yellow); Glucose,Urine (UA) Negative (Negative); Ketones,Urine Negative (Negative); Leukocyte Esterase,Urine Negative (Negative); PH,Urine 5.5 (5.0-8.5); Protein,Urine Negative (Negative); Specific Gravity, Urine 1.010 (1.005-1.030); Urobilinogen,Urine 0.2 EU/dl (0.2)
[2025-02-23 18:13] LABS: Bacteria,Urine 1+ /lpf; RBC,Urine Occasional #/hpf (0-3)
[2025-02-23] MEDS: APIXABAN 5MG TABLET 5 MG PO (18:42)
[2025-02-23] MEDS: PANTOPRAZOLE 40MG TABLET 40 MG PO (20:23)
--- NOTE | 2025-02-23 21:00 | PC.NURSE ---
seizure pads place on patients bed rails.
[2025-02-24] VITALS (10 sets, daily range): BP systolic 118–163; BP diastolic 57–80; PULSE 64–80; RESP 17–22; TEMP 36.4–37.2; O2SAT 90–97; BMI 45.0
--- NOTE | 2025-02-24 03:08 | PC.NURSE ---
patient has not slept much tonight, very verbal and afraid her family doesn't know where she is and states she misses her friends - tx per MAR
[2025-02-24] MEDS: LEVOTHYROXINE 125MCG (0.125MG) TAB 125 MCG PO (06:37)
[2025-02-24] MEDS: IPRATROPIUM/ALBUTEROL 3 ML NEB IH ×3 (06:53→18:28)
[2025-02-24 07:37] LABS: Hematocrit 35.3 % (37.0-47.0); Immature Granulocytes % 0.5 %; Mean Corpuscular HGB Conc 32.0 g/dL (31.8-35.4); Mean Corpuscular Hemoglobin 30.8 pg (27.0-31.2); Mean Corpuscular Volume 96.2 fl (81-99); Nucleated Red Blood Cells % 0 %; Platelet Count 185 K/mm3 (142-424); Red Blood Count 3.67 M/mm3 (4.20-5.40); Red Cell Distribution Width-SD 50.8 fL; White Blood Count 13.1 K/mm3 (4.8-10.8)
[2025-02-24 07:59] LABS: Albumin Level 3.8 g/dl (3.5-5.0); Chloride 94 mmol/L (98-107); Potassium 3.5 mmoL/L (3.5-5.1); Sodium 136 mmol/L (136-145)
[2025-02-24 08:01] LABS: Blood Urea Nitrogen 15 mg/dl (7-17); Creatinine Clearance Estimated 38 mL/min (50-200); Creatinine,Serum 1.00 mg/dl (0.52-1.04); Estimated Glomerular Filt Rate 54 ml/min (>60); GFR (African American) 65 ML/MIN (>60)
[2025-02-24 08:02] LABS: Alanine Aminotransferase 18 U/L (12-78); Albumin/Globulin Ratio 1.1 (1.1-1.8); Alkaline Phosphatase 68 U/L (38-126); Anion Gap 9.5 mEq/L (5-15); Aspartate Amino Transferase 27 U/L (14-36); Bilirubin,Total 0.5 mg/dl (0.2-1.3); Calcium 8.8 mg/dl (8.4-10.2); Carbon Dioxide 36 mmol/L (22.0-30.0); Globulin 3.6 g/dL (1.3-3.2); Glucose 117 mg/dl (74-100); Magnesium 1.7 mg/dl (1.6-2.3); Total Protein,Serum 7.4 g/dl (6.3-8.2)
[2025-02-24 08:06] LABS: Hemoglobin 11.3 g/dL (12.2-16.2)
[2025-02-24] MEDS: BUSPIRONE HCL 10 MG TABLET PO (08:06)
[2025-02-24] MEDS: BUMETANIDE 1MG/4ML VIAL 1 MG IV ×2 (08:06→16:59)
[2025-02-24] MEDS: SERTRALINE 50MG TABLET 50 MG PO (08:07)
[2025-02-24] MEDS: ROPINIROLE 1MG TABLET 1 MG PO (08:07)
[2025-02-24] MEDS: METOPROLOL TARTRATE 25MG TABLET 37.5 MG PO (08:07)
[2025-02-24] MEDS: GABAPENTIN 100MG CAPSULE 100 MG PO (08:07)
[2025-02-24] MEDS: TAMSULOSIN 0.4MG CAPSULE 0.4 MG PO (08:07)
--- NOTE | 2025-02-24 08:07 | SW/DCPLANNER ---
Patient currently resides at [facility] level of care. Updated patient information has been faxed to Damaris lei/ [facility]. Discharge date is unknown at this time. CM will continue to follow up.
--- NOTE | 2025-02-24 09:49 | HMH.OTEV ---
OT Evaluation Rehab OT IP Evaluation Start: 02/23/25 12:25 Freq: ONCE Status: Active Protocol: Document 02/24/25 09:43 [facility] (Rec: 02/24/25 09:48 [facility] [id number]) Rehab OT IP Assessment Subjective History Pt oriented x 3 on arrival. Pt agreeable to engage in therapy evaluation. Pt admitted on 02/23/25 due to PNA and respiratory failure. History and physical: Ms. Basilio is a 74-year-old female who resides at [facility]. Has history of lymphedema, Neuropathy, hypothyroid, hypertension. Resides at [facility] due to previous history of trach, respiratory failure, obesity . Was reportedly independently mobile and oriented to self and place. EMS was called as patient was found hypoxic and nonresponsive this morning. O2 sats were in the 80s on room air. She is supposed to wear oxygen at least at night if not continuous. Oxygen was placed on patient and she became more alert and oriented. Was sent to the ER for evaluation. On arrival, found to have a white count of 19. Temperature 101.1. Concern for sepsis with possible pneumonia. Initiated on broad-spectrum antibiotics and medicine consulted for further management. After arrival to the floor, patient's left leg was noted to be red and warm with erythema up to proximal thigh. Concerning for cellulitis. Has significant chronic stasis changes of her bilateral lower extremities with swelling of her feet. Does not appear to be on diuretics per her med rec from her nursing facility. Had some improvement in mentation and opened eyes to voice but not able to provide significant answers or history. Subjective Prior to being in the hospital, pt was living at [facility]. Pt claims she was normally independent with dressing and feeding. Pt required assistance with showering. Pt claims she was able to transfer using rolling walker. Pt dependent upon staff for completion of all IADLs. Objective Patient Orientation Person,Place,Birthday Right Upper WFL Extremity Gross ROM Left Upper Extremity WFL Gross ROM Bed Mobility bed mobility-scooting,bed mobility - supine/sit Assist Level Minimal x 2 (25% assist) Transfer Training Sit/Stand/Step Transfer Assist Level Moderate x 2 (50% assist) Chair Transfer Moderate x 2 (50% assist) Ability Chair Transfer Stand Step Pivot Technique Chair Transfer Rolling Walker Assistive Devices Rehab OT IP prob,goals,plan Problems Date of Evaluation: 02/24/25 OT IP Problems Bed Mobility,Transfers,Balance,Self care,Safety Rehab Potential Rehab Potential Good Equipment Needs Assistive Devices Rolling / Wheeled Walker Plan OT intervention Plan Bed Mobility,Transfers,Balance,Self care,Safety, Therapeutic Exercise OT Plan Frequency Daily Duration LOS Discharge Goals Bed Mobility Ability Assistance x1 Sit to Stand Chair Moderate x 1 (50% assist) Transfer Ability Chair Transfer Moderate x 1 (50% assist) Ability Chair Transfer Stand Step Pivot Technique Chair Transfer Rolling Walker Assistive Devices Lower Body Dressing Minimal Assistance Ability Performing Toilet Minimal Assistance Hygiene Ability Overall Commode/ Moderate Assistance Toilet Transfer Ability Commode/Toilet Stand Step Pivot Transfer Technique Discharge Plan OT Discharge Plan Pt will continue to be seen for OT services while at [facility]. Pt would benefit most from short term rehab at [facility] when she returns to [facility]. Continued skilled therapy is important in order for patient to improve strength, safety, endurance, ADL independence, and functional transfers to reach PLOF. Eval Complexity Eval Charge Codes 21241 - Moderate Complexity PHYSICIAN CERTIFICATION: I certify the specified therapy services for Angela Basilio are required, authorized, and reviewed every 30 days.
[2025-02-24] MEDS: APIXABAN 5MG TABLET 5 MG PO (09:59)
--- NOTE | 2025-02-24 11:16 | HMH.PTEV ---
Physical Therapy Evaluation Rehab PT IP Evaluation Start: 02/23/25 12:21 Freq: ONCE Status: Active Protocol: Document 02/24/25 11:12 [facility] (Rec: 02/24/25 11:16 [facility] [id number]) Subjective/History History History Per H&P: Ms. Basilio is a 74-year-old female who resides at [facility]. Has history of lymphedema, Neuropathy, hypothyroid, hypertension. Resides at [facility] due to previous history of trach, respiratory failure, obesity . Was reportedly independently mobile and oriented to self and place. EMS was called as patient was found hypoxic and nonresponsive this morning. O2 sats were in the 80s on room air. She is supposed to wear oxygen at least at night if not continuous. Oxygen was placed on patient and she became more alert and oriented. Was sent to the ER for evaluation. On arrival, found to have a white count of 19. Temperature 101.1. Concern for sepsis with possible pneumonia. Initiated on broad-spectrum antibiotics and medicine consulted for further management. After arrival to the floor, patient's left leg was noted to be red and warm with erythema up to proximal thigh. Concerning for cellulitis. Has significant chronic stasis changes of her bilateral lower extremities with swelling of her feet. Does not appear to be on diuretics per her med rec from her nursing facility. Had some improvement in mentation and opened eyes to voice but not able to provide significant answers or history. Subjective Subjective Pt reports she lives in a [facility]. Pt reports she is usually IND with all mobility using a RW. New diagnosis of No cancer in past 12 months? [facility] How much help from another person do you currently need... Turning from your A lot back to your side while in a flat bed without using bedrails? Moving from lying on A lot back to sitting on the side of a flat bed without using bedrails? Moving to and from a A lot bed to a chair ( including a wheelchair)? Standing up from a A lot chair using your arms? (e.g., wheelchair, bedside chair) Walking in hospital A lot room? Climbing 3-5 steps A lot with a railing? Mobility Score 12 Mobility Level [facility] Mobility 4 Move to chair/commode Mobility Calculator Rehab PT IP Eval Objective Appearance Patient Behavior Appropriate,Cooperative Patient Orientation Person Difficulty following none instructions Speech Pattern Clear Ambulation Patient Able to No Ambulate Balance Ability to Arise Able, uses arms to help Sitting Balance Steady, safe Transfers Bed Transfer Ability Moderate x 1 (50% assist) Rehab PT IP prob,goals,plan Problems Date of Evaluation: 02/24/25 PT IP Problems Bed Mobility,Transfers,Gait,Balance Rehab Potential Rehab Potential Good Plan PT Intervention Plan Bed Mobility,Transfers,Gait,Balance,Self care,Safety, Therapeutic Exercise Other Intervention 1-2 times Plan PT Plan Frequency Daily Duration LOS Discharge Goals Bed Transfer Ability Minimal x 1 (25% assist) Sit to Stand Chair Moderate x 1 (50% assist) Transfer Ability Ambulation Assistive Rolling Walker Device Ambulation Distance 5 (feet) Discharge Plan PT Discharge Plan Initial physical therapy evaluation performed. Patient presents below baseline at this time in functional mobility, transfers, and strength. PT recommending rehabilitation placement upon d/c from [facility]. Pt would benefit from skilled PT while at [facility] to prevent further functional decline and maximize safety with mobility. Eval Complexity Eval Charge Codes 10293 - Moderate Complexity PHYSICIAN CERTIFICATION: I certify the specified therapy services for Angela Basilio are required, authorized, and reviewed every 30 days.
[2025-02-24] MEDS: POTASSIUM CHLORIDE 20MEQ TAB 40 MEQ PO ×2 (11:28→14:40)
[2025-02-24] MEDS: AZITHROMYCIN 500 MG in 0.9 % SODIUM CHLORIDE 250 ML 250 MG IV (11:28)
[2025-02-24] MEDS: POLYETHYLENE GLYCOL 3350 17 GM PACKET PO (11:28)
--- NOTE | 2025-02-24 12:01 | PC.NURSE ---
waller catheter removed at 1130, purewick in place
[2025-02-24] MEDS: SODIUM CHLORIDE 3% 15ML NEB 3 ML IH (12:28)
[2025-02-24] MEDS: VANCOMYCIN/WATER FOR INJ (PEG) 1.75 GM/350 ML PIGGYBACK IV (13:29)
[2025-02-24 14:56] LABS: Adenovirus,PCR Not Detected (NotDetected); Chlamydophila Pneumoniae, PCR Not Detected (NotDetected); Coronavirus 19, PCR Not Detected (NotDetected); Coronovirus HKU1,PCR Not Detected (NotDetected); Influenza A, PCR Not Detected (NotDetected); Influenza AH1, 2009 Not Detected (NotDetected); Influenza AH1, PCR Not Detected (NotDetected); Influenza AH3,PCR Not Detected (NotDetected); Influenza B, PCR Not Detected (NotDetected); Mycoplasma Pneumoniae, PCR Not Detected (NotDetected); Parainfluenza 1, PCR Not Detected (NotDetected); Parainfluenza 2, PCR Not Detected (NotDetected); Parainfluenza 3, PCR Not Detected (NotDetected); Parainfluenza 4, PCR Not Detected (NotDetected)
[2025-02-24 15:39] LABS: VBG HCO3 30.9 mmol/L (23-30); VBG PH 7.41 mmol/L (7.31-7.41); VBG PO2 49.2 mmol/L (28-40)
[2025-02-24 15:42] LABS: Lactate Venous 2.6 mmol/L (0.4-2.0); VBG PCO2 50.4 mmol/L (35-51)
--- NOTE | 2025-02-24 15:51 | P.DS_ITS ---
General Admission date:: 02/23/25 HPI HPI HPI: Ms. Basilio is a 74-year-old female who resides at [facility]. Has history of lymphedema, Neuropathy, hypothyroid, hypertension. Resides at [facility] due to previous history of trach, respiratory failure, obesity. Was reportedly independently mobile and oriented to self and place. EMS was called as patient was found hypoxic and nonresponsive this morning. O2 sats were in the 80s on room air. She is supposed to wear oxygen at least at night if not continuous. Oxygen was placed on patient and she became more alert and oriented. Was sent to the ER for evaluation. On arrival, found to have a white count of 19. Temperature 101.1. Concern for sepsis with possible pneumonia. Initiated on broad-spectrum antibiotics and medicine consulted for further management. After arrival to the floor, patient's left leg was noted to be red and warm with erythema up to proximal thigh. Concerning for cellulitis. Has significant chronic stasis changes of her bilateral lower extremities with swelling of her feet. Does not appear to be on diuretics per her med rec from her nursing facility. Had some improvement in mentation and opened eyes to voice but not able to provide significant answers or history. Hospital Course Hospital Course Hospital Course: Ms. Basilio is a 74-year-old female with morbid obesity, hypothyroid, resides at [facility]. She presented with altered mental status and meeting sepsis criteria with elevated white count, fever, new oxygen requirement, and encephalopathy. Discussed case with ER physician, request admission for further management of patient's sepsis. I decided to admit for further care including IV antibiotics. Not responding to questioning or on exam. She does appear to be protecting her airway. Initiated on vancomycin, ceftriaxone, azithromycin due to initial concern for possible pneumonia. On further exam after arrival to the floor, she appears to have cellulitis superimposed on her chronic lymphedema and stasis wounds of her legs with redness up to her left thigh. #Sepsis, resolved #Suspected community-acquired pneumonia #Cellulitis present on admission left lower extremity #Bilateral lower extremity lymphedema - Initially met sepsis criteria the white count of 19.2, suspected infection with both pneumonia and cellulitis, Fever 101.1. WBC improved to 13.1, no longer septic. ? Cellulitis significantly improved with broad-spectrum antibiotics including vancomycin, ceftriaxone. Azithromycin also given for suspected pneumonia. Blood cultures NGTD. ? Chronic lymphedema slightly improved with IV Bumex 2 mg twice daily. Patient does have significant venous stasis dermatitis in bilateral lower extremities. ? Patient is alert and oriented, states she is feeling much better than yesterday. Continue baseline 2 L nasal cannula. ? Discharged with doxycycline 100 mg twice daily for 5 more days. Continue home Lasix 40 mg daily. #Physical deconditioning #Obesity #Lymphedema ? PT/OT consulted, recommended SNF. At this time, patient admission does not meet criteria for SNF based on patient's insurance. Patient will be discharged back to [facility], will receive outpatient PT. #Elevated BNP ? ECHO with normal biventricular systolic function. No significantly abnormal diastolic dysfunction. #Urinary retention ? Initially required Hopper catheter, removed. UA relatively normal, no signs of UTI. Hypothyroid: TSH well-controlled at 2.1. Continue levothyroxine 125 mcg daily. TFTs normal. Mood disorder: Continue Zoloft 50 mg daily, citalopram 10 mg daily, and BuSpar 10 mg daily. Restless leg: Continue ropinirole 1 mg daily. CAD/hypertension: Continue metoprolol tartrate 37.5 mg twice daily, hold amlodipine due to normal blood pressure and swelling of legs. Total time spent on discharge: 35 minutes on chart review, counseling, documentation, and direct care with patient. Exam Data for Last 24 hours Vital signs and Labs for Last 24 Hours: Temp Pulse Resp BP Pulse Ox O2 Del Method O2 Flow Rate 98.3 F 78 18 163/76 H 97 Nasal Cannula 2 02/24/25 11:59 02/24/25 12:17 02/24/25 12:08 02/24/25 11:59 02/24/25 11:59 02/24/25 15:00 02/24/25 15:00 Laboratory Results - last 24 hr 02/23/25 15:30: Lactate 2.7 H 02/23/25 16:21: Urine Color Yellow, Urine Appearance Clear, Urine pH 5.5, Ur Specific [place] 1.010, Urine Protein Negative, Urine Glucose (UA) Negative, Urine Ketones Negative, Urine Blood Negative, Urine Nitrate Negative, Urine Bilirubin Negative, Urine Urobilinogen 0.2, Ur Leukocyte Esterase Negative, Urine RBC Occasional, Urine WBC 3-5, Ur Squamous Epith Cells 3-5, Urine Bacteria 1+ 02/24/25 07:30: WBC 13.1 H D, RBC 3.67 L, Hgb 11.3 L D, Hct 35.3 L, MCV 96.2, MCH 30.8, MCHC 32.0, RDW 14.5, Plt Count 185, MPV 9.6, Neut % (Auto) 91.3 H, Lymph % (Auto) 4.2 L, Brooke % (Auto) 3.7, Eos % (Auto) 0.1, Baso % (Auto) 0.2, Neut # (Auto) 12.0 H, Lymph # (Auto) 0.6 L, Brooke # (Auto) 0.5, Eos # (Auto) 0.0, Baso # (Auto) 0.0, Sodium 136, Potassium 3.5, Chloride 94 L, Carbon Dioxide 36 H , Anion Gap 9.5, BUN 15, Creatinine 1.00, Estimated Creat Clear 38, Estimated GFR 54 L, Est GFR ( Amer) 65, Glucose 117 H D, Calcium 8.8, Magnesium 1.7, Total Bilirubin 0.5, AST 27, ALT 18, Alkaline Phosphatase 68, Total Protein 7.4, Albumin 3.8 D, Globulin 3.6 H, Albumin/Globulin Ratio 1.1 02/24/25 15:24: VBG pH 7.41, VBG pCO2 50.4, VBG pO2 49.2 H, VBG HCO3 30.9 H, VBG Total CO2 32.5 H, VBG O2 Saturation 85.3 H, VBG Base Excess 6.2 H, VBG Lactic Acid 2.6 H I & O for Last 24 hours: Intake & Output 02/21/25 02/22/25 02/23/25 02/24/25 23:59 23:59 23:59 23:59 Intake Total 940 / 940 980 / 980 Output Total 1200 / 1200 650 / 650 Balance -260 / -260 330 / 330 Weight 112.4 kg 115.298 kg Microbiology Reports for the Last 24 Hours: Microbiology 02/23/25 10:51 Blood Blood Culture - Preliminary NO GROWTH AFTER 24 HOURS 02/23/25 09:26 Blood Blood Culture - Preliminary NO GROWTH AFTER 24 HOURS Constitutional Constitutional: no acute distress and obese *Routine HEENT Exam Head: Present normocephalic Eye: Present EOMI and PERRL ENT: Present mucous membranes moist *Routine Neck Exam Neck: Present supple; Absent lymphadenopathy *Routine Respiratory Exam Respiratory: Present CTA bilaterally *Routine Cardiovascular Exam Cardiovascular: Present RRR *Routine Abdominal Exam Abdominal: Present soft and normoactive bowel sounds; Absent tenderness *Routine Extremities Exam Extremities: Absent cyanosis, clubbing or edema *Routine Skin Exam Skin: Present warm; Absent rash *Routine Neurological Exam Neurological: Present alert Results Data Completed and Pending Labs on day of discharge: Labs from last 24 hours 02/24/25 02/24/25 02/23/25 15:24 07:30 16:21 WBC 13.1 H D RBC 3.67 L Hgb 11.3 L D Hct 35.3 L MCV 96.2 MCH 30.8 MCHC 32.0 RDW 14.5 Plt Count 185 MPV 9.6 Neut % (Auto) 91.3 H Lymph % (Auto) 4.2 L Brooke % (Auto) 3.7 Eos % (Auto) 0.1 Baso % (Auto) 0.2 Neut # (Auto) 12.0 H Lymph # (Auto) 0.6 L Brooke # (Auto) 0.5 Eos # (Auto) 0.0 Baso # (Auto) 0.0 VBG pH 7.41 VBG pCO2 50.4 VBG pO2 49.2 H VBG HCO3 30.9 H VBG Total CO2 32.5 H VBG O2 Saturation 85.3 H VBG Base Excess 6.2 H VBG Lactic Acid 2.6 H Sodium 136 Potassium 3.5 Chloride 94 L Carbon Dioxide 36 H Anion Gap 9.5 BUN 15 Creatinine 1.00 Estimated Creat Clear 38 Estimated GFR 54 L Est GFR ( Amer) 65 Glucose 117 H D Lactate Calcium 8.8 Magnesium 1.7 Total Bilirubin 0.5 AST 27 ALT 18 Alkaline Phosphatase 68 Total Protein 7.4 Albumin 3.8 D Globulin 3.6 H Albumin/Globulin Ratio 1.1 Urine Color Yellow Urine Appearance Clear Urine pH 5.5 Ur Specific [place] 1.010 Urine Protein Negative Urine Glucose (UA) Negative Urine Ketones Negative Urine Blood Negative Urine Nitrate Negative Urine Bilirubin Negative Urine Urobilinogen 0.2 Ur Leukocyte Esterase Negative Urine RBC Occasional Urine WBC 3-5 Ur Squamous Epith Cells 3-5 Urine Bacteria 1+ 02/23/25 15:30 WBC RBC Hgb Hct MCV MCH MCHC RDW Plt Count MPV Neut % (Auto) Lymph % (Auto) Brooke % (Auto) Eos % (Auto) Baso % (Auto) Neut # (Auto) Lymph # (Auto) Brooke # (Auto) Eos # (Auto) Baso # (Auto) VBG pH VBG pCO2 VBG pO2 VBG HCO3 VBG Total CO2 VBG O2 Saturation VBG Base Excess VBG Lactic Acid Sodium Potassium Chloride Carbon Dioxide Anion Gap BUN Creatinine Estimated Creat Clear Estimated GFR Est GFR ( Amer) Glucose Lactate 2.7 H Calcium Magnesium Total Bilirubin AST ALT Alkaline Phosphatase Total Protein Albumin Globulin Albumin/Globulin Ratio Urine Color Urine Appearance Urine pH Ur Specific [place] Urine Protein Urine Glucose (UA) Urine Ketones Urine Blood Urine Nitrate Urine Bilirubin Urine Urobilinogen Ur Leukocyte Esterase Urine RBC Urine WBC Ur Squamous Epith Cells Urine Bacteria Preliminary micro results at discharge 02/23/25 10:51 Blood Culture - Preliminary Blood NO GROWTH AFTER 24 HOURS 02/23/25 09:26 Blood Culture - Preliminary Blood NO GROWTH AFTER 24 HOURS DS: Diagnosis Discharge Diagnosis (1) Severe sepsis: Status: Acute Code(s): A41.9 - Sepsis, unspecified organism; R65.20 - Severe sepsis without septic shock (2) Acute encephalopathy: Status: Acute Code(s): G93.40 - Encephalopathy, unspecified Problem details: metabolic; present on admission (3) Morbid obesity with BMI of 40.0-44.9, adult: Status: Acute Code(s): E66.01 - Morbid (severe) obesity due to excess calories; Z68.41 - Body mass index [BMI] 40.0-44.9, adult (4) Cellulitis of left lower leg: Status: Acute Code(s): L03.116 - Cellulitis of left lower limb Meds Home Medications and Allergies Home Medications ?Medication ?Instructions ?Recorded ?Confirmed ?Type albuterol sulfate 0.63 mg/3 mL 0.63 mg inhalation Q6H PRN 07/01/24 02/23/25 History solution for nebulization Shortness Of Breath alprazolam 0.5 mg tablet 0.5 mg PO DAILY PRN Anxiety 07/01/24 02/23/25 History apixaban 5 mg tablet (Eliquis) 5 mg PO BID 07/01/24 History benzocaine 15 mg-menthol 3.6 mg 1 blanca PO NEEDED PRN Sore Throat 07/01/24 02/23/25 History lozenges (Sore Throat (benzocaine with menthol)) buspirone 10 mg tablet 10 mg PO DAILY 07/01/2401/28 History carbamide peroxide 6.5 % ear drops 1 drp Ear-Both YENIFER Y 07/01/24 02/23/25 History (Ear Wax Removal Drops) citalopram 10 mg tablet 10 mg PO DAILY 07/01/2401/28 History clotrimazole-betamethasone 1 1 applic topical NEEDE D PRN 07/01/24 02/23/25 History %-0.05 % topical cream FUNGAL INFECTION docusate sodium 50 mg/5 mL oral 50 mg PO DAILY PRN Con stipation 07/01/24 02/24/25 History liquid furosemide 40 mg tablet 40 mg PO DAILY 07/01/2401/28 History gabapentin 100 mg capsule 100 mg PO DAILY 07/01/24 History gentamicin 0.3 % eye drops 1 drp Ear-Both HS 07/01/24 02/23/25 History levothyroxine 125 mcg tablet 125 mcg PO DAILY 07/01/24 02/23/25 History loratadine 10 mg tablet 10 mg PO DAILY 07/01/2401/28 History melatonin 3 mg tablet 3 mg PO HS 07/01/24 02/24/25 History metoprolol tartrate 75 mg tablet 37.5 mg PO BID 02/23/25 History mirabegron 50 mg tablet,extended 50 mg PO DAILY 02/23/25 History release 24 hr (Myrbetriq) nystatin 100,000 unit/gram topical 1 applic topical DA ILYP PRN fungal 07/01/24 02/24/25 History powder infection potassium chloride 10 mEq 20 meq PO DAILY 07/01/24 History capsule,extended release ropinirole 1 mg tablet 1 mg PO DAILY 07/01/2402/23 History sennosides 8.6 mg tablet (senna) 8.6 mg PO DAILY 07/0102/23/25 History sertraline 50 mg tablet 50 mg PO DAILY 07/01/2401/28 History tamsulosin 0.4 mg capsule 0.4 mg PO HS 07/01/24 History tramadol 50 mg tablet 50 mg PO DAILY 07/01/2401/28 History acetaminophen 500 mg tablet 500 mg PO Q6H PRN Pain (Sc bette 02/23/25 02/23/25 History Score 1-3) hydralazine 50 mg tablet 50 mg PO TIDP PRN Anxiety 02/23/25 History doxycycline monohydrate 100 mg 100 mg PO BID 5 days #1 0 caps 02/24/25 Rx capsule New Prescriptions to Start Prescriptions: doxycycline monohydrate Jose Rdz Allergies Allergy/AdvReac Type Severity Reaction Status Date / Time aspirin Allergy Rash Verified 02/23/25 17:22 bupropion Allergy Rash Verified 02/23/25 17:22 cephalexin (From Keflex) Allergy Rash Verified 02/23/25 17:22 Cephalosporins Allergy Rash Verified 02/23/25 17:22 fluconazole (From Diflucan) Allergy Rash Verified 02/23/25 17:22 lisinopril Allergy Rash Verified 02/23/25 17:22 metoclopramide (From Reglan) Allergy Rash Verified 02/23/25 17:22 Penicillins Allergy Rash Verified 02/23/25 17:22 Sulfa (Sulfonamide Allergy Rash Verified 02/23/25 17:22 Antibiotics) influenza virus vaccine ts AdvReac Anaphylaxis Verified 02/23/25 17:22 [id number] (36 mos,up) (From Fluarix) Discharge Plan Disposition Patient Disposition: [facility] Condition: Fair Discharge Order Discharge Orders: Discharge Order (Routine); Ordered 02/24/25 Ordered By: Jose Rdz Follow up Plan Prescriptions/Medication Reconciliation: New doxycycline monohydrate 100 mg capsule 100 mg PO BID 5 Days Qty: 10 0RF Continued Eliquis 5 mg tablet 5 mg PO BID potassium chloride 10 mEq capsule, extended release 20 meq PO DAILY buspirone 10 mg tablet 10 mg PO DAILY alprazolam 0.5 mg tablet 0.5 mg PO DAILY PRN (Reason: Anxiety) melatonin 3 mg tablet 3 mg PO HS furosemide 40 mg tablet 40 mg PO DAILY metoprolol tartrate 75 mg tablet 37.5 mg PO BID mirabegron [Myrbetriq] 50 mg tablet extended release 24 hr 50 mg PO DAILY loratadine 10 mg tablet 10 mg PO DAILY clotrimazole-betamethasone 1-0.05 % cream 1 applic topical NEEDED PRN (Reason: FUNGAL INFECTION ) tamsulosin 0.4 mg capsule 0.4 mg PO HS sertraline 50 mg tablet 50 mg PO DAILY ropinirole 1 mg tablet 1 mg PO DAILY gabapentin 100 mg capsule 100 mg PO DAILY tramadol 50 mg tablet 50 mg PO DAILY citalopram 10 mg tablet 10 mg PO DAILY Ear Wax Removal Drops 6.5 % drops 1 drp Ear-Both DAILY docusate sodium 50 mg/5 mL liquid 50 mg PO DAILY PRN (Reason: Constipation) Sore Throat (benzocaine-menth) 15-3.6 mg lozenge 1 blanca PO NEEDED PRN (Reason: Sore Throat) levothyroxine 125 mcg tablet 125 mcg PO DAILY sennosides [senna] 8.6 mg tablet 8.6 mg PO DAILY nystatin 100,000 unit/gram powder 1 applic topical DAILYP PRN (Reason: fungal infection) gentamicin 0.3 % drops 1 drp Ear-Both HS albuterol sulfate 0.63 mg/3 mL solution for nebulization 0.63 mg inhalation Q6H PRN (Reason: Shortness Of Breath) acetaminophen 500 mg tablet 500 mg PO Q6H PRN (Reason: Pain (Scale Score 1-3)) hydralazine 50 mg tablet 50 mg PO TIDP PRN (Reason: Anxiety) Discontinued amlodipine 5 mg tablet 5 mg PO DAILY Problem Reconciliation Problems Reviewed?: Yes Patient Discharge Instructions Patient Instructions: DI for Pneumonia -- Adult, DI for Sepsis -- Adult, Catheter-Associated Urinary Tract Infection, Stop Light Pneumonia, Stop Light Infection Print Language: Palauan Providers Primary Care Provider: Provider,Referral Admit Provider: Kelton Burks Attending Provider: Kelton Burks
--- NOTE | 2025-02-24 17:35 | CA_ITS ---
APPROVED REPORT EXAM: Comprehensive 2D, Doppler, and color-flow Echocardiogram [employer] Line Installer: Tenisha Milan CRT Ht: 5 ft 3 in Wt: 246lbs BSA: 2.11 BP: 133/61 mmHg Indications: Volume overload, suspected CHF, CAD, HTN, ex smoker M-Mode Dimensions RVDd 2.96 cm (0.9-2.6) LA Diam 3.89 cm (1.9-4.0) LVDd 5.21 cm (3.5-5.7) LVDs 3.49 cm (3.5-5.7) IVSd 1.39 cm (0.6-1.1) PWd 1.00 cm (0.6-1.1) EF (Teich) 61.20% FS 33.00% EDV (Teich) 130.10 mL TAPSE 2.68 (<1.7) ESV (Teich) 50.50 mL LV Diastology E Decel Time 230 (160-240 msec) E/A Ratio 1.12 MED A' 6.70 cm/s LAT A' 6.50 cm/s Aortic Valve AO Peak GR. 7.80 mmHg Mitral Valve MV A Velocity 95.0 (40-130 cm/s) E/A Ratio 1.12 Pulmonary Valve PV Peak Velocity 147.0 (50-150 cm/s) Tricuspid Valve TR P. Velocity 192.00 cm/s RAP Estimate 10.00 mmHg RVSP 24.70 mmHg Left Ventricle The left ventricle is normal size. Left ventricular systolic function is normal. The left ventricular ejection fraction is within the normal range. There is increased left ventricular wall thickness. There is normal LV segmental wall motion. The left ventricular diastolic function is normal. LVEF is 55% Right Ventricle The right ventricle is normal size. The right ventricular systolic function is normal. Atria The left atrium size is normal. The right atrium size is normal. There is no color Doppler evidence of interatrial shunt. Aortic Valve The aortic valve opens well. There is no hemodynamically significant aortic valvular stenosis. Trace aortic regurgitation is present. Mitral Valve The mitral valve is normal in structure. No evidence of mitral valve stenosis. Trace mitral regurgitation is present. Tricuspid Valve The tricuspid valve leaflets are thin and pliable. Trace tricuspid regurgitation. There is insufficient TR jet to estimate RVSP. Pulmonic Valve The pulmonary valve is grossly normal in structure. Trace pulmonic valve regurgitation is present. Great Vessels The aortic root is normal in size. IVC is normal in size and collapses >50% with inspiration. Pericardium There is no pericardial effusion. Other Information Study Quality: Fair Conclusion Normal biventricular systolic function. No significant valvular stenosis or regurgitation. Electronically signed by : Maya Hidalgo MD 02/24/2025 11:35:40
[2025-02-24 19:31] LABS: Reflex Lactic Add Lactic Reflex
== END 2025-02-24 18:53 | DRG 871 ==
LOC: ER 10:53 → 2ND 11:18
PROVIDERS: Student in an Organized Health Care Education/Training Program; Admitting Provider Internal Medicine Adolescent Medicine; Emergency Provider Student in an Organized Health Care Education/Training Program; Visit Provider Internal Medicine Adolescent Medicine
DX: A41.9 Sepsis, unspecified organism (principal); G93.41 Metabolic encephalopathy; J18.9 Pneumonia, unspecified organism; J96.21 Acute and chronic respiratory failure with hypoxia; L03.116 Cellulitis of left lower limb; I50.42 Chronic combined systolic (congestive) and diastolic (congestive) heart failure; Z68.41 Body mass index [BMI] 40.0-44.9, adult; I89.0 Lymphedema, not elsewhere classified; I87.2 Venous insufficiency (chronic) (peripheral); E03.9 Hypothyroidism, unspecified; G25.81 Restless legs syndrome; E66.01 Morbid (severe) obesity due to excess calories; F39 Unspecified mood [affective] disorder; I11.0 Hypertensive heart disease with heart failure; I25.10 Atherosclerotic heart disease of native coronary artery without angina pectoris; R33.9 Retention of urine, unspecified; R53.81 Other malaise; R79.89 Other specified abnormal findings of blood chemistry; R65.20 Severe sepsis without septic shock; Z87.891 Personal history of nicotine dependence; Z88.0 Allergy status to penicillin; Z88.1 Allergy status to other antibiotic agents; Z88.2 Allergy status to sulfonamides; Z88.6 Allergy status to analgesic agent; Z88.7 Allergy status to serum and vaccine; Z88.8 Allergy status to other drugs, medicaments and biological substances; Z79.01 Long term (current) use of anticoagulants; Z79.890 Hormone replacement therapy; Z79.899 Other long term (current) drug therapy
CPT/HCPCS: 0223U; 36415; 51798; 70450; 71275; 80053; 81001; 82803; 83605; 83735; 83880; 84443; 84484; 85007; 85025; 86803; 87040; 87389; 87636; 89220; 93306; 94640; 94760; 94761; 97110; 97162; 97166; 99285; J0456; J0696; J1939; J3375; J7050; Q9967